=== PATIENT | male | born 1965 | race African-American/Black ===

== ENCOUNTER 2016-06-12 17:05 | Inpatient (IN) | payer OTHER, MEDICAID ==
[~2016-06-12] VITALS: Ht 185.4 cm; Wt 144.7 kg
[~2016-06-12 17:05] MED LIST: ALLO100T PO; COLC0.6T2 PO; DIGO250T4 PO; FURO-152 PO; HYDR-523 PO; IBUP-1008 PO; NAPR375T5 MT; POTA10CA42 PO
[2016-06-12] MEDS ORDERED: METHYLPREDNISOLONE SOD SUCC 125 MG/2 ML VIAL IV STA (18:16)
[2016-06-12] MEDS ORDERED: IPRATROPIUM/ALBUTEROL 0.5-3(2.5)MG/3ML NEB HHN ONE ×2 (18:30→20:45)
[2016-06-12 18:52] LABS: BASOPHILS % 0.7 % (0.0-2.0); EOSINOPHILS % 1.1 % (0.0-5.0); HEMATOCRIT. 42.4 % (42.0-52.0); HEMOGLOBIN. 13.9 g/dL (14.0-18.0); LYMPHOCYTES % 8.2 % (20.0-50.0); MEAN CORPUSCULAR HEMOGLOBIN 27.7 pg (28.0-32.0); MEAN CORPUSCULAR HGB CONC 32.8 g/dL (31.0-37.0); MEAN CORPUSCULAR VOLUME 84.4 fL (80.0-94.0); MEAN PLATELET VOLUME 6.7 fl (7.4-10.4); MONOCYTES % 6.2 % (2.0-8.0); NEUTROPHILS % 83.8 % (40.0-76.0); PLATELET 310 x1000/uL (130-400); RED BLOOD CELL COUNT 5.03 mill/uL (4.7-6.1); RED CELL DISTRIBUTION WIDTH 14.2 % (11.6-14.6); WHITE BLOOD COUNT 12.2 x1000/uL (4.5-11.0)
[2016-06-12] MEDS ORDERED: MORPHINE SULFATE 4 MG/ML CPJ (NOT FOR IM USE) IV STA (18:52)
[2016-06-12] MEDS ORDERED: ONDANSETRON HCL 4MG/2ML VIAL IV STA (18:52)
[2016-06-12 18:53] LABS: CLARITY URINE CLEAR (CLEAR); COLOR URINE YELLOW (YELLOW); GLUCOSE URINE NEGATIVE (NEGATIVE); KETONES URINE NEGATIVE (NEGATIVE); LEUKOCYTE ESTERASE URINE NEGATIVE (NEGATIVE); NITRITE URINE NEGATIVE (NEGATIVE); OCCULT BLOOD URINE NEGATIVE (NEGATIVE); PH URINE 5.5 (4.5-8.0); PROTEIN URINE NEGATIVE (NEGATIVE); SPECIFIC GRAVITY URINE 1.009 (1.005-1.030)
[2016-06-12 18:56] LABS: CHLORIDE 103 mEq/L (98-107)
[2016-06-12 18:57] LABS: INDEX HEMOLYSI 1 (1-3); INDEX ICTERIC 1 (1-4); INDEX LIPEMIC 1 (1-3)
[2016-06-12 18:59] LABS: INR 1.2; PROTHROMBIN TIME 12.4 sec
[2016-06-12 19:01] LABS: ALBUMIN 3.6 g/dL (3.4-5.0); ANION GAP 13; CALCIUM 8.7 mg/dL (8.5-10.1); CARBON DIOXIDE 28 mEq/L (21-32); LIPASE 313 IU/L (73-393); UREA NITROGEN BLOOD 15 mg/dL (7-21)
[2016-06-12] MEDS ORDERED: PREDNISONE 20MG TABLET PO STA (19:02)
[2016-06-12 19:06] LABS: ALANINE AMINOTRANSFERASE 30 IU/L (13-61); eGFR > 60 mL/min (>60)
[2016-06-12 19:08] LABS: NT PRO B-TYPE NATRIURETIC PEP 2058 pg/mL (5-125)
[2016-06-12] MEDS ORDERED: FUROSEMIDE 40MG/4ML VIAL IV ONE (19:15)
[2016-06-12 22:30] VITALS: BP 111/65
[2016-06-12] MEDS ORDERED: TEMAZEPAM 15MG CAPSULE PO PRN (23:45)
[2016-06-12] MEDS ORDERED: CLONIDINE 0.1MG TABLET PO PRN (23:45)
[2016-06-12] MEDS ORDERED: POTASSIUM CHLORIDE 20MEQ TABLET SR PO NR (23:45)
[2016-06-12] MEDS ORDERED: ALBU18HF2 IH (23:54)
[2016-06-12] MEDS ORDERED: LISINOPRIL PO (23:54)
[2016-06-13] VITALS (7 sets, daily range): BP systolic 101–117; BP diastolic 67–88
[2016-06-13] MEDS: ALLOPURINOL 100 MG TABLET PO SCH ×2 (00:16→09:58)
[2016-06-13] MEDS: HYDROCODONE/ACETAMINOPHEN 5/325MG TABLET PO PRN ×2 (00:16→12:41)
[2016-06-13] MEDS: MORPHINE SULFATE 4 MG/ML CPJ (NOT FOR IM USE) IV PRN ×2 (01:22→06:10)
[2016-06-13] MEDS: LEVOFLOXACIN 500MG TABLET PO SCH (06:09)
[2016-06-13 06:51] LABS: HEMATOCRIT. 40.3 % (42.0-52.0); HEMOGLOBIN. 13.4 g/dL (14.0-18.0); MEAN CORPUSCULAR HEMOGLOBIN 28.2 pg (28.0-32.0); MEAN CORPUSCULAR HGB CONC 33.4 g/dL (31.0-37.0); MEAN CORPUSCULAR VOLUME 84.6 fL (80.0-94.0); MEAN PLATELET VOLUME 7.1 fl (7.4-10.4); PLATELET 291 x1000/uL (130-400); RED BLOOD CELL COUNT 4.76 mill/uL (4.7-6.1); RED CELL DISTRIBUTION WIDTH 14.4 % (11.6-14.6); WHITE BLOOD COUNT 10.2 x1000/uL (4.5-11.0)
[2016-06-13 07:18] LABS: ANION GAP 15; CALCIUM 9.4 mg/dL (8.5-10.1); CARBON DIOXIDE 26 mEq/L (21-32); CHLORIDE 103 mEq/L (98-107); INDEX HEMOLYSI 1 (1-3); INDEX ICTERIC 1 (1-4); INDEX LIPEMIC 1 (1-3); UREA NITROGEN BLOOD 14 mg/dL (7-21); eGFR > 60 mL/min (>60)
[2016-06-13 07:32] LABS: DIFFERENTIAL COMMENT 1
[2016-06-13] MEDS ORDERED: NAPROXEN 375MG TABLET PO SCH (09:00)
[2016-06-13] MEDS: ENOXAPARIN 40MG/0.4ML SYR SUBCUT SCH ×2 (09:00→09:55)
[2016-06-13] MEDS ORDERED: FUROSEMIDE 20MG TABLET PO SCH (09:00)
[2016-06-13] MEDS: METHYLPREDNISOLONE SOD SUCC 40 MG/ML VIAL IV SCH ×2 (09:55→20:58)
[2016-06-13] MEDS: POTASSIUM CHLORIDE 20MEQ TABLET SR PO SCH (09:56)
[2016-06-13] MEDS: COLCHICINE 0.6MG TABLET PO SCH ×2 (09:57→17:50)
[2016-06-13] MEDS: DIGOXIN 250MCG TABLET PO SCH (09:57)
[2016-06-13] MEDS: NAPROXEN 375MG TABLET PO SCH ×2 (10:05→17:50)
[2016-06-13 12:31] LABS: MAGNESIUM 2.1 mg/dL (1.8-2.4)
[2016-06-13] MEDS: GUAIFENESIN/CODEINE 100-10MG/5ML UDC PO PRN (12:40)
[2016-06-13 13:47] LABS: PLATELET ESTIMATE NORMAL
[2016-06-13] MEDS: NEOMY SULF/BACITRAC ZN/POLY OINT 28GM TOP SCH (20:59)
[2016-06-13] MEDS ORDERED: FUROSEMIDE 40MG/4ML VIAL IVP SCH (21:45)
[2016-06-14] VITALS: BP 104/72
[2016-06-14 04:00] VITALS: BP 112/86
[2016-06-14] MEDS: LEVOFLOXACIN 500MG TABLET PO SCH (05:09)
[2016-06-14] MEDS: GUAIFENESIN/CODEINE 100-10MG/5ML UDC PO PRN (05:09)
[2016-06-14 07:18] LABS: THYROID STIMULATING HORMONE 0.63 uIU/mL (0.36-3.74)
[2016-06-14 08:00] VITALS: BP 110/82
[2016-06-14] MEDS: ENOXAPARIN 40MG/0.4ML SYR SUBCUT SCH ×2 (08:35→09:00)
[2016-06-14] MEDS: POTASSIUM CHLORIDE 20MEQ TABLET SR PO SCH (08:36)
[2016-06-14] MEDS: COLCHICINE 0.6MG TABLET PO SCH ×2 (08:36→16:49)
[2016-06-14] MEDS: ALLOPURINOL 100 MG TABLET PO SCH (08:36)
[2016-06-14] MEDS: DIGOXIN 250MCG TABLET PO SCH (08:36)
[2016-06-14] MEDS: NEOMY SULF/BACITRAC ZN/POLY OINT 28GM TOP SCH ×2 (08:40→21:01)
[2016-06-14] MEDS: FUROSEMIDE 40MG/4ML VIAL IVP SCH ×2 (08:53→16:49)
[2016-06-14] MEDS: IPRATROPIUM/ALBUTEROL 0.5-3(2.5)MG/3ML NEB HHN PRN ×3 (09:51→20:29)
[2016-06-14 12:00] VITALS: BP 105/75
[2016-06-14 16:00] VITALS: BP 98/61
[2016-06-14 20:00] VITALS: BP_SYST 106; BP_SYST 99; BP_DIAS 73; BP_DIAS 77
[2016-06-15] MEDS: GUAIFENESIN/CODEINE 100-10MG/5ML UDC PO PRN ×3 (03:46→19:23)
[2016-06-15 04:00] VITALS: BP 98/65
[2016-06-15] MEDS: LEVOFLOXACIN 500MG TABLET PO SCH (05:11)
[2016-06-15 05:47] LABS: BASOPHILS % 0.2 % (0.0-2.0); EOSINOPHILS % 0.3 % (0.0-5.0); HEMATOCRIT. 40.5 % (42.0-52.0); HEMOGLOBIN. 13.4 g/dL (14.0-18.0); LYMPHOCYTES % 15.4 % (20.0-50.0); MEAN CORPUSCULAR HEMOGLOBIN 27.8 pg (28.0-32.0); MEAN CORPUSCULAR HGB CONC 33.1 g/dL (31.0-37.0); MEAN CORPUSCULAR VOLUME 84.2 fL (80.0-94.0); MEAN PLATELET VOLUME 7.2 fl (7.4-10.4); MONOCYTES % 4.6 % (2.0-8.0); NEUTROPHILS % 79.5 % (40.0-76.0); PLATELET 339 x1000/uL (130-400); RED BLOOD CELL COUNT 4.81 mill/uL (4.7-6.1); RED CELL DISTRIBUTION WIDTH 14.3 % (11.6-14.6); WHITE BLOOD COUNT 10.8 x1000/uL (4.5-11.0)
[2016-06-15 05:59] LABS: CHLORIDE 102 mEq/L (98-107); INDEX HEMOLYSI 1 (1-3); INDEX ICTERIC 1 (1-4); INDEX LIPEMIC 1 (1-3)
[2016-06-15 06:09] LABS: ANION GAP 17; CALCIUM 8.7 mg/dL (8.5-10.1); CARBON DIOXIDE 26 mEq/L (21-32); TROPONIN I < 0.02 ng/mL (0.00-0.04); UREA NITROGEN BLOOD 22 mg/dL (7-21); eGFR > 60 mL/min (>60)
[2016-06-15 08:00] VITALS: BP 105/85
[2016-06-15] MEDS: FUROSEMIDE 40MG/4ML VIAL IVP SCH ×2 (08:22→17:12)
[2016-06-15] MEDS: DIGOXIN 250MCG TABLET PO SCH (08:23)
[2016-06-15] MEDS: NEOMY SULF/BACITRAC ZN/POLY OINT 28GM TOP SCH ×2 (08:23→19:23)
[2016-06-15] MEDS: ALLOPURINOL 100 MG TABLET PO SCH (08:23)
[2016-06-15] MEDS: POTASSIUM CHLORIDE 20MEQ TABLET SR PO SCH ×2 (08:23→17:12)
[2016-06-15] MEDS: COLCHICINE 0.6MG TABLET PO SCH ×2 (08:24→17:12)
[2016-06-15] MEDS: ENOXAPARIN 40MG/0.4ML SYR SUBCUT SCH (08:24)
[2016-06-15 12:00] VITALS: BP 101/80
[2016-06-15] MEDS: PREDNISONE 20MG TABLET PO SCH (13:09)
[2016-06-15 16:00] VITALS: BP 113/88
[2016-06-15 20:00] VITALS: BP 123/88
[2016-06-15] MEDS: HYDROCODONE/ACETAMINOPHEN 5/325MG TABLET PO PRN (20:24)
[2016-06-16] VITALS: BP 125/90
[2016-06-16] MEDS: GUAIFENESIN/CODEINE 100-10MG/5ML UDC PO PRN ×3 (00:11→11:06)
[2016-06-16 04:00] VITALS: BP 114/90
[2016-06-16] MEDS: LEVOFLOXACIN 500MG TABLET PO SCH (06:39)
[2016-06-16 07:18] LABS: CHLORIDE 103 mEq/L (98-107); INDEX HEMOLYSI 1 (1-3); INDEX ICTERIC 1 (1-4); INDEX LIPEMIC 1 (1-3)
[2016-06-16 07:26] LABS: ALANINE AMINOTRANSFERASE 104 IU/L (13-61); ALBUMIN 3.2 g/dL (3.4-5.0); ANION GAP 14; CALCIUM 9.1 mg/dL (8.5-10.1); CARBON DIOXIDE 27 mEq/L (21-32); MAGNESIUM 2.3 mg/dL (1.8-2.4); UREA NITROGEN BLOOD 24 mg/dL (7-21); eGFR > 60 mL/min (>60)
[2016-06-16 08:00] VITALS: BP 115/83
[2016-06-16 08:28] LABS: BASOPHILS % 0.2 % (0.0-2.0); EOSINOPHILS % 0.3 % (0.0-5.0); HEMOGLOBIN. 15.1 g/dL (14.0-18.0); LYMPHOCYTES % 10.2 % (20.0-50.0); MEAN CORPUSCULAR HEMOGLOBIN 28.1 pg (28.0-32.0); MEAN CORPUSCULAR HGB CONC 32.7 g/dL (31.0-37.0); MEAN PLATELET VOLUME 7.2 fl (7.4-10.4); MONOCYTES % 3.2 % (2.0-8.0); NEUTROPHILS % 86.1 % (40.0-76.0); PLATELET 375 x1000/uL (130-400); RED BLOOD CELL COUNT 5.36 mill/uL (4.7-6.1); RED CELL DISTRIBUTION WIDTH 14.7 % (11.6-14.6); WHITE BLOOD COUNT 11.6 x1000/uL (4.5-11.0)
[2016-06-16] MEDS: ENOXAPARIN 40MG/0.4ML SYR SUBCUT SCH (09:00)
[2016-06-16] MEDS: POTASSIUM CHLORIDE 20MEQ TABLET SR PO SCH (10:08)
[2016-06-16] MEDS: DIGOXIN 250MCG TABLET PO SCH (10:14)
[2016-06-16] MEDS: FUROSEMIDE 40MG/4ML VIAL IVP SCH (10:14)
[2016-06-16] MEDS: COLCHICINE 0.6MG TABLET PO SCH (10:14)
[2016-06-16] MEDS: PREDNISONE 20MG TABLET PO SCH (10:15)
[2016-06-16] MEDS: NEOMY SULF/BACITRAC ZN/POLY OINT 28GM TOP SCH (10:15)
[2016-06-16] MEDS: ALLOPURINOL 100 MG TABLET PO SCH (10:15)
[2016-06-16 12:00] VITALS: BP 120/91
[2016-06-16 16:00] VITALS: BP 103/86
[2016-06-16 17:26] VITALS: BP 103/86
== END 2016-06-16 18:23 | disposition home or self-care (01) | DRG 291 ==
LOC: ER 17:06 → OBSVTOIN 21:31 → INTOOBSV 21:31 → 5WST 21:31 → ER 22:12
PROVIDERS: ADMIT Internal Medicine; ATTEND Internal Medicine
DX: I11.0 Hypertensive heart disease with heart failure (principal); J18.9 Pneumonia, unspecified organism; Z68.41 Body mass index [BMI] 40.0-44.9, adult; J44.0 Chronic obstructive pulmonary disease with (acute) lower respiratory infection; R65.10 Systemic inflammatory response syndrome (SIRS) of non-infectious origin without acute organ dysfunction; I50.23 Acute on chronic systolic (congestive) heart failure; J20.9 Acute bronchitis, unspecified; E66.09 Other obesity due to excess calories; E87.6 Hypokalemia; G47.33 Obstructive sleep apnea (adult) (pediatric); M10.00 Idiopathic gout, unspecified site; I49.3 Ventricular premature depolarization; J44.9 Chronic obstructive pulmonary disease, unspecified; M79.671 Pain in right foot; M79.672 Pain in left foot; M25.551 Pain in right hip; M25.522 Pain in left elbow; M10.9 Gout, unspecified
CPT/HCPCS: 36415; 71010; 73080; 73502; 73630; 80048; 80053; 80061; 81003; 83690; 83735; 83880; 84132; 84443; 84484; 84550; 85025; 85610; 85651; 87070; 93005; 93306; 94640; 94664; 96374; 96375; 97116; 97162; 97530; 99285; J1650; J1940; J2270; J2405; J2920; J2930; J7512; J7620

== ENCOUNTER 2016-12-13 06:55 | Inpatient (IN) | payer OTHER, MEDICAID ==
[~2016-12-13] VITALS: Ht 185.4 cm; Wt 137.1 kg
[2016-12-13] VITALS (11 sets, daily range): BP systolic 105–129; BP diastolic 73–97
[~2016-12-13 06:55] MED LIST changes: +ASPI-1159 PO; +COR12 PO; -DIGO250T4 PO; -FURO-152 PO; +FURO80TA3 PO; -HYDR-523 PO; -IBUP-1008 PO; +LISI-651 PO; -NAPR375T5 MT; -POTA10CA42 PO
[2016-12-13] MEDS ORDERED: KETOROLAC 30MG/ML VIAL IV STA (07:57)
[2016-12-13] MEDS ORDERED: METHYLPREDNISOLONE SOD SUCC 125 MG/2 ML VIAL IV ONE (08:00)
[2016-12-13] MEDS ORDERED: IPRATROPIUM/ALBUTEROL 0.5-3(2.5)MG/3ML NEB HHN ONE (08:00)
[2016-12-13 08:41] LABS: BASOPHILS % 0.9 % (0.0-2.0); EOSINOPHILS % 0.3 % (0.0-5.0); HEMOGLOBIN. 13.7 g/dL (14.0-18.0); MEAN CORPUSCULAR HEMOGLOBIN 28.5 pg (28.0-32.0); MEAN CORPUSCULAR VOLUME 85.2 fL (80.0-94.0); MEAN PLATELET VOLUME 7.1 fl (7.4-10.4); MONOCYTES % 5.7 % (2.0-8.0); NEUTROPHILS % 84.1 % (40.0-76.0); PLATELET 307 x1000/uL (130-400); RED BLOOD CELL COUNT 4.81 mill/uL (4.7-6.1); RED CELL DISTRIBUTION WIDTH 14.6 % (11.6-14.6)
[2016-12-13 08:49] LABS: INR 1.3; PARTIAL THROMBOPLASTIN TIME 28.2 sec (23.4-31.0)
[2016-12-13 08:56] LABS: CARBON DIOXIDE 25 mEq/L (21-32); CHLORIDE 103 mEq/L (98-107); TROPONIN I 0.03 ng/mL (0.00-0.04)
[2016-12-13 09:23] LABS: GLUCOSE URINE NEGATIVE (NEGATIVE); KETONES URINE NEGATIVE (NEGATIVE); LEUKOCYTE ESTERASE URINE NEGATIVE (NEGATIVE); NITRITE URINE NEGATIVE (NEGATIVE); OCCULT BLOOD URINE NEGATIVE (NEGATIVE); PROTEIN URINE NEGATIVE (NEGATIVE); SPECIFIC GRAVITY URINE 1.007 (1.005-1.030)
[2016-12-13 09:31] LABS: CLARITY URINE CLEAR (CLEAR); COLOR URINE PALE YELLOW (YELLOW)
[2016-12-13 09:59] LABS: *AMPHETAMINES SCREEN URINE NEGATIVE (NEGATIVE); *BARBITURATES SCREEN URINE NEGATIVE (NEGATIVE); *BENZODIAZEPINES SCREEN URINE NEGATIVE (NEGATIVE); *COCAINE SCREEN URINE NEGATIVE (NEGATIVE); CANNABINOID URINE SCREEN NEGATIVE (NEGATIVE); METHADONE URINE SCREEN NEGATIVE (NEGATIVE); OPIATES URINE SCREEN NEGATIVE (NEGATIVE); PHENCYCLIDINE URINE SCREEN NEGATIVE (NEGATIVE)
[2016-12-13] MEDS ORDERED: POTA10TA15 PO (13:34)
[2016-12-13] MEDS ORDERED: POTASSIUM CHLORIDE 20MEQ TABLET SR PO SCH (14:30)
[2016-12-13] MEDS ORDERED: KETOROLAC 30MG/ML VIAL IV PRN (16:15)
[2016-12-13] MEDS ORDERED: DOXYCYCLINE HYCLATE 100MG CAPSULE PO SCH (17:00)
[2016-12-13] MEDS: COLCHICINE 0.6MG TABLET PO SCH (17:00)
[2016-12-13] MEDS: FUROSEMIDE 80MG TABLET PO SCH (17:30)
[2016-12-13] MEDS: ALLOPURINOL 100 MG TABLET PO SCH (17:31)
[2016-12-13] MEDS: COLCHICINE 0.6MG TABLET PO NR ×2 (17:33→17:40)
[2016-12-13] MEDS: IPRATROPIUM/ALBUTEROL 0.5-3(2.5)MG/3ML NEB HHN SCH (20:17)
[2016-12-13] MEDS: CARVEDILOL 12.5MG TABLET PO SCH (20:40)
[2016-12-13] MEDS: METHYLPREDNISOLONE SOD SUCC 125 MG/2 ML VIAL IV SCH (22:16)
[2016-12-13 23:08] LABS: CREATINE KINASE 56 IU/L (39-308); CREATINE KINASE MB FRACTION 1.1 ng/mL (0.5-3.6); TROPONIN I < 0.02 ng/mL (0.00-0.04)
[2016-12-14] VITALS (9 sets, daily range): BP systolic 103–132; BP diastolic 58–78
[2016-12-14] MEDS: IPRATROPIUM/ALBUTEROL 0.5-3(2.5)MG/3ML NEB HHN SCH ×2 (00:18→04:32)
[2016-12-14] MEDS: METHYLPREDNISOLONE SOD SUCC 125 MG/2 ML VIAL IV SCH (05:56)
[2016-12-14 07:36] LABS: CARBON DIOXIDE 26 mEq/L (21-32); CHLORIDE 104 mEq/L (98-107); CREATINE KINASE 53 IU/L (39-308); CREATINE KINASE MB FRACTION 1.5 ng/mL (0.5-3.6); TROPONIN I < 0.02 ng/mL (0.00-0.04)
[2016-12-14 07:45] LABS: HEMATOCRIT. 40.1 % (42.0-52.0); HEMOGLOBIN. 13.2 g/dL (14.0-18.0); MEAN CORPUSCULAR HEMOGLOBIN 28.4 pg (28.0-32.0); MEAN CORPUSCULAR VOLUME 86.3 fL (80.0-94.0); MEAN PLATELET VOLUME 7.5 fl (7.4-10.4); PLATELET 299 x1000/uL (130-400); RED BLOOD CELL COUNT 4.65 mill/uL (4.7-6.1); RED CELL DISTRIBUTION WIDTH 14.5 % (11.6-14.6)
[2016-12-14] MEDS: ALLOPURINOL 100 MG TABLET PO SCH (08:17)
[2016-12-14] MEDS: FUROSEMIDE 80MG TABLET PO SCH (08:17)
[2016-12-14] MEDS: COLCHICINE 0.6MG TABLET PO SCH (08:18)
[2016-12-14] MEDS: CARVEDILOL 12.5MG TABLET PO SCH (08:19)
[2016-12-14] MEDS ORDERED: ASPIRIN 81MG EC TABLET PO SCH (09:00)
[2016-12-14] MEDS ORDERED: LISINOPRIL 10MG TABLET PO SCH (09:00)
[2016-12-14] MEDS ORDERED: POTASSIUM CHLORIDE 20MEQ TABLET SR PO SCH (09:00)
[2016-12-14 16:15] LABS: PLATELET ESTIMATE NORMAL
== END 2016-12-14 13:00 | disposition home or self-care (01) | DRG 602 ==
LOC: ER 06:55 → 3WST 11:12 → EDBEDREQ 11:18 → ENRESERV 11:35
PROVIDERS: ADMIT Internal Medicine; ATTEND Internal Medicine
DX: L03.114 Cellulitis of left upper limb (principal); I50.23 Acute on chronic systolic (congestive) heart failure; J44.1 Chronic obstructive pulmonary disease with (acute) exacerbation; I42.0 Dilated cardiomyopathy; J45.901 Unspecified asthma with (acute) exacerbation; I11.0 Hypertensive heart disease with heart failure; E66.9 Obesity, unspecified; F14.10 Cocaine abuse, uncomplicated; E87.6 Hypokalemia; G47.33 Obstructive sleep apnea (adult) (pediatric); I49.3 Ventricular premature depolarization; M10.072 Idiopathic gout, left ankle and foot; Z79.82 Long term (current) use of aspirin; Z91.19 Patient's noncompliance with other medical treatment and regimen; Z68.39 Body mass index [BMI] 39.0-39.9, adult; Z79.899 Other long term (current) drug therapy
CPT/HCPCS: 36415; 71010; 80048; 80053; 80305; 81003; 82550; 82553; 83735; 83880; 84443; 84484; 84550; 85025; 85610; 85730; 93005; 94640; 96374; 96375; 99285; J1885; J2930; J7620

== ENCOUNTER 2017-01-18 19:42 | Inpatient (IN) | payer OTHER, MEDICAID ==
[~2017-01-18] VITALS: Ht 185.4 cm; Wt 129.3 kg
[~2017-01-18 19:42] MED LIST changes: +POTA10TA15 PO
[2017-01-18] MEDS ORDERED: ONDANSETRON HCL 4MG/2ML VIAL IV STA (20:17)
[2017-01-18] MEDS ORDERED: SODIUM CHLORIDE 0.9% 1,000 ML IV ONE (20:17)
[2017-01-18] MEDS ORDERED: KETOROLAC 30MG/ML VIAL IV STA (20:17)
[2017-01-18] MEDS ORDERED: MAGNESIUM CITRATE 300ML SOLUTION PO ONE ×2 (20:30→22:30)
[2017-01-18 20:43] LABS: BASOPHILS % 0.4 % (0.0-2.0); EOSINOPHILS % 0.3 % (0.0-5.0); HEMATOCRIT. 43.2 % (42.0-52.0); HEMOGLOBIN. 14.4 g/dL (14.0-18.0); LYMPHOCYTES % 13.5 % (20.0-50.0); MEAN CORPUSCULAR HEMOGLOBIN 28.7 pg (28.0-32.0); MEAN CORPUSCULAR VOLUME 85.9 fL (80.0-94.0); MEAN PLATELET VOLUME 7.2 fl (7.4-10.4); MONOCYTES % 8.5 % (2.0-8.0); NEUTROPHILS % 77.3 % (40.0-76.0); PLATELET 287 x1000/uL (130-400); RED BLOOD CELL COUNT 5.04 mill/uL (4.7-6.1); RED CELL DISTRIBUTION WIDTH 15.4 % (11.6-14.6)
[2017-01-18 20:44] LABS: CHLORIDE 99 mEq/L (98-107)
[2017-01-18 20:47] LABS: INR 1.3; PROTHROMBIN TIME 13.9 sec (9.4-11.6)
[2017-01-18 20:55] LABS: CARBON DIOXIDE 28 mEq/L (21-32)
[2017-01-18 21:10] LABS: CLARITY URINE CLEAR (CLEAR); COLOR URINE DARK YELLOW (YELLOW); GLUCOSE URINE NEGATIVE (NEGATIVE); KETONES URINE NEGATIVE (NEGATIVE); LEUKOCYTE ESTERASE URINE NEGATIVE (NEGATIVE); NITRITE URINE NEGATIVE (NEGATIVE); OCCULT BLOOD URINE NEGATIVE (NEGATIVE); PH URINE 5.5 (4.5-8.0); PROTEIN URINE 2+ (NEGATIVE); SPECIFIC GRAVITY URINE 1.018 (1.005-1.030)
[2017-01-18] MEDS ORDERED: POTASSIUM CHLORIDE 20MEQ TABLET SR PO ONE (22:45)
[2017-01-18] MEDS ORDERED: FUROSEMIDE 40MG/4ML VIAL IVP ONE (23:45)
[2017-01-18] MEDS ORDERED: ONDANSETRON HCL 4MG/2ML VIAL IV ONE (23:45)
[2017-01-19] MEDS ORDERED: ASPIRIN 81MG TABLET PO ONE (00:30)
[2017-01-19 04:10] VITALS: BP 115/87
[2017-01-19] MEDS ORDERED: MAGNESIUM/ALUMINUM HYDROXIDE/SIMETHICONE 30ML UDC PO PRN (04:30)
[2017-01-19] MEDS ORDERED: ONDANSETRON HCL 4MG/2ML VIAL IV PRN (04:30)
[2017-01-19] MEDS ORDERED: ACETAMINOPHEN 325MG TABLET PO PRN (04:30)
[2017-01-19] MEDS ORDERED: CLONIDINE 0.1MG TABLET PO PRN (04:30)
[2017-01-19] MEDS ORDERED: IPRATROPIUM/ALBUTEROL 0.5-3(2.5)MG/3ML NEB INH PRN (04:30)
[2017-01-19] MEDS ORDERED: DIPHENHYDRAMINE 50MG/ML VIAL IV PRN (04:30)
[2017-01-19] MEDS: SODIUM CHLORIDE 0.9% INJ 3ML FLUSH IVF SCH ×3 (04:50→21:16)
[2017-01-19] MEDS ORDERED: MAGNESIUM 2 G PREMIX 50 ML IV SCH (06:00)
[2017-01-19 08:00] VITALS: BP 113/82
[2017-01-19] MEDS: ALLOPURINOL 100 MG TABLET PO SCH (08:48)
[2017-01-19] MEDS: LISINOPRIL 10MG TABLET PO SCH ×2 (08:48→08:55)
[2017-01-19] MEDS: POTASSIUM CHLORIDE 20MEQ TABLET SR PO SCH ×2 (08:49→18:52)
[2017-01-19] MEDS: CARVEDILOL 12.5MG TABLET PO SCH ×2 (08:50→21:16)
[2017-01-19 10:59] LABS: CARBON DIOXIDE 24 mEq/L (21-32); CHLORIDE 103 mEq/L (98-107)
[2017-01-19 12:00] VITALS: BP 101/63
[2017-01-19] MEDS: MORPHINE SULFATE 4 MG/ML CPJ (NOT FOR IM USE) IV PRN ×2 (12:39→21:21)
[2017-01-19 16:00] VITALS: BP 100/74
[2017-01-19] MEDS: FUROSEMIDE 40MG TABLET PO SCH (18:52)
[2017-01-19] MEDS: COLCHICINE 0.6MG TABLET PO SCH (18:52)
[2017-01-19 20:00] VITALS: BP 128/93
[2017-01-19 23:22] LABS: CARBON DIOXIDE 28 mEq/L (21-32); CHLORIDE 101 mEq/L (98-107)
[2017-01-20] VITALS: BP 90/63
[2017-01-20 04:00] VITALS: BP 103/77
[2017-01-20 06:14] LABS: BASOPHILS % 0.3 % (0.0-2.0); EOSINOPHILS % 0.7 % (0.0-5.0); HEMATOCRIT. 42.2 % (42.0-52.0); HEMOGLOBIN. 14.1 g/dL (14.0-18.0); LYMPHOCYTES % 15.6 % (20.0-50.0); MEAN CORPUSCULAR HEMOGLOBIN 28.9 pg (28.0-32.0); MEAN CORPUSCULAR VOLUME 86.4 fL (80.0-94.0); MEAN PLATELET VOLUME 7.7 fl (7.4-10.4); MONOCYTES % 6.4 % (2.0-8.0); PLATELET 269 x1000/uL (130-400); RED BLOOD CELL COUNT 4.88 mill/uL (4.7-6.1)
[2017-01-20] MEDS: SODIUM CHLORIDE 0.9% INJ 3ML FLUSH IVF SCH ×2 (06:43→14:15)
[2017-01-20 06:45] LABS: CARBON DIOXIDE 26 mEq/L (21-32); CHLORIDE 102 mEq/L (98-107)
[2017-01-20 08:00] VITALS: BP 103/77
[2017-01-20] MEDS: LISINOPRIL 10MG TABLET PO SCH (10:39)
[2017-01-20] MEDS: FUROSEMIDE 40MG TABLET PO SCH (10:39)
[2017-01-20] MEDS: COLCHICINE 0.6MG TABLET PO SCH (10:39)
[2017-01-20] MEDS: ALLOPURINOL 100 MG TABLET PO SCH (10:39)
[2017-01-20] MEDS: POTASSIUM CHLORIDE 20MEQ TABLET SR PO SCH (10:40)
[2017-01-20] MEDS: CARVEDILOL 12.5MG TABLET PO SCH (10:40)
[2017-01-20] MEDS ORDERED: POTASSIUM CHLORIDE 20MEQ TABLET SR PO NR (11:15)
[2017-01-20 12:28] VITALS: BP 102/76
[2017-01-20 13:26] LABS: HEPATITIS B CORE AB IGM NEGATIVE
[2017-01-20 13:28] LABS: HEPATITIS A AB IGM NEGATIVE (NEGATIVE)
[2017-01-20 13:48] LABS: HEPATITIS B SURFACE ANTIGEN NEGATIVE
[2017-01-20 15:19] VITALS: BP 102/68
== END 2017-01-20 16:00 | disposition home or self-care (01) | DRG 388 ==
LOC: ER 20:02 → 7WST 01-19 03:04 → ENRESERV 01-19 03:06 → EDBEDREQ 01-19 03:06
PROVIDERS: ADMIT Internal Medicine; ATTEND Internal Medicine
DX: K56.41 Fecal impaction (principal); I50.23 Acute on chronic systolic (congestive) heart failure; I42.0 Dilated cardiomyopathy; I11.0 Hypertensive heart disease with heart failure; E87.6 Hypokalemia; I49.3 Ventricular premature depolarization; J44.9 Chronic obstructive pulmonary disease, unspecified; E78.5 Hyperlipidemia, unspecified; E80.6 Other disorders of bilirubin metabolism; R74.0 Nonspecific elevation of levels of transaminase and lactic acid dehydrogenase [LDH]; M71.9 Bursopathy, unspecified; R79.89 Other specified abnormal findings of blood chemistry; M10.9 Gout, unspecified; Z79.82 Long term (current) use of aspirin; Z79.899 Other long term (current) drug therapy
CPT/HCPCS: 36415; 71010; 73200; 74176; 76700; 80048; 80053; 80076; 81001; 82248; 83735; 83880; 84484; 85025; 85379; 85610; 86705; 86709; 86803; 87340; 93005; 96361; 96374; 96375; 99285; J1885; J1940; J2270; J2405; J3475; J7030

== ENCOUNTER 2017-07-09 00:06 | Inpatient (IN) | payer OTHER, MEDICAID ==
[~2017-07-09] VITALS: Ht 185.4 cm; Wt 119.4 kg
[~2017-07-09 00:06] MED LIST changes: -ASPI-1159 PO; +AZIT500T5 PO; -COR12 PO; +COR3 PO; -LISI-651 PO; +LISI2.5T47 PO
[2017-07-09] MEDS ORDERED: MORPHINE SULFATE 4 MG/ML CPJ (NOT FOR IM USE) IV STA (00:39)
[2017-07-09] MEDS ORDERED: ONDANSETRON HCL 4MG/2ML VIAL IV STA (00:39)
[2017-07-09] MEDS ORDERED: SODIUM CHLORIDE 0.9% 1,000 ML IV ONE (00:39)
[2017-07-09] MEDS ORDERED: ASPIRIN 81MG TABLET PO ONE (00:45)
[2017-07-09 01:06] LABS: HEMATOCRIT. 41.3 % (42.0-52.0); HEMOGLOBIN. 14.1 g/dL (14.0-18.0); MEAN CORPUSCULAR HEMOGLOBIN 29.4 pg (28.0-32.0); MEAN CORPUSCULAR VOLUME 85.8 fL (80.0-94.0); MEAN PLATELET VOLUME 6.6 fl (7.4-10.4); PLATELET 303 x1000/uL (130-400); RED BLOOD CELL COUNT 4.81 mill/uL (4.7-6.1); RED CELL DISTRIBUTION WIDTH 16.9 % (11.6-14.6)
[2017-07-09 01:14] LABS: CHLORIDE 97 mEq/L (98-107)
[2017-07-09 01:17] LABS: INR 1.2; PROTHROMBIN TIME 12.7 sec (9.4-11.6)
[2017-07-09 01:19] LABS: ETHANOL BLOOD < 10 mg/dL
[2017-07-09] MEDS ORDERED: SODIUM CHLORIDE 0.9% 1000ML BAG (SEPSIS BOLUS) IV ONE (01:45)
[2017-07-09] MEDS ORDERED: LEVOFLOXACIN 750MG PREMIX 150 ML IV ONE (01:45)
[2017-07-09 02:24] LABS: PLATELET ESTIMATE NORMAL
[2017-07-09] MEDS ORDERED: MORPHINE SULFATE 2 MG/ML CPJ (NOT FOR IM USE) IV STA (03:09)
[2017-07-09] MEDS ORDERED: MORPHINE SULFATE 4 MG/ML CPJ (NOT FOR IM USE) IV ONE (03:23)
[2017-07-09] MEDS ORDERED: POTA20TA82 PO (06:25)
[2017-07-09] MEDS ORDERED: MORPHINE SULFATE 4 MG/ML CPJ (NOT FOR IM USE) IV NR (07:30)
[2017-07-09] MEDS ORDERED: KCL 20MEQ/100ML PREMIX 100 ML IV STA (07:34)
[2017-07-09] MEDS ORDERED: MORPHINE SULFATE 2 MG/ML CPJ (NOT FOR IM USE) IV PRN (07:45)
[2017-07-09] MEDS ORDERED: ONDANSETRON HCL 4MG/2ML VIAL IV PRN (07:45)
[2017-07-09] MEDS ORDERED: VANCOMYCIN 1 G PREMIX 200 ML IV SCH (07:45)
[2017-07-09] MEDS ORDERED: PIPERACILLIN/TAZ 3.375G PREMIX 50 ML IV SCH ×2 (07:45→13:00)
[2017-07-09 08:00] VITALS: BP 108/72
[2017-07-09] MEDS: PANTOPRAZOLE SODIUM 40 MG/VIAL IV SCH (09:41)
[2017-07-09] MEDS: DEXT 5%/0.45% NACL 1000ML 1,000 ML IV SCH (09:42)
[2017-07-09] MEDS: ENOXAPARIN 30MG/0.3ML SYR SUBCUT SCH ×2 (09:52→20:42)
[2017-07-09 10:45] VITALS: BP 109/76
[2017-07-09] MEDS ORDERED: MORPHINE SULFATE 4 MG/ML CPJ (NOT FOR IM USE) IV PRN (10:50)
[2017-07-09] MEDS ORDERED: POTASSIUM CHLORIDE INJ 40 MEQ in DEXT 5% WATER 500 ML IV NR (11:00)
[2017-07-09 11:05] VITALS: BP 109/76
[2017-07-09] MEDS ORDERED: HYDROMORPHONE HCL/PF 2MG/ML CPJ IV PRN (11:30)
[2017-07-09] MEDS ORDERED: SIMV10TA6 PO (11:55)
[2017-07-09] MEDS ORDERED: SPIR25TA4 PO (11:55)
[2017-07-09] MEDS ORDERED: SULF1TAB48 PO (12:00)
[2017-07-09] MEDS ORDERED: METF500T4 PO (12:00)
[2017-07-09] MEDS ORDERED: SACU1TAB7 PO (12:00)
[2017-07-09] MEDS ORDERED: VANCOMYCIN 2,000 MG in DEXT 5% WATER 500 ML IV NR (12:00)
[2017-07-09] MEDS ORDERED: AMOX125S8 PO (12:00)
[2017-07-09] MEDS ORDERED: COR12 PO (12:05)
[2017-07-09] MEDS ORDERED: ALLO100T PO (12:05)
[2017-07-09] MEDS ORDERED: ASPI-1159 PO (12:25)
[2017-07-09 12:28] VITALS: BP 120/80
[2017-07-09] MEDS ORDERED: COLC0.6C3 PO (13:23)
[2017-07-09] MEDS: COLCHICINE 0.6MG TABLET PO SCH (13:52)
[2017-07-09] MEDS: IBUPROFEN 400MG TABLET PO PRN (13:52)
[2017-07-09] MEDS ORDERED: METRONIDAZOLE 500 MG PREMIX 100 ML IV SCH (14:00)
[2017-07-09] MEDS: HYDROMORPHONE HCL/PF 2MG/ML CPJ IV PRN ×2 (14:59→20:46)
[2017-07-09 15:35] LABS: CLARITY URINE CLEAR (CLEAR); COLOR URINE DARK YELLOW (YELLOW); KETONES URINE NEGATIVE (NEGATIVE); LEUKOCYTE ESTERASE URINE TRACE (NEGATIVE); NITRITE URINE POSITIVE (NEGATIVE); OCCULT BLOOD URINE NEGATIVE (NEGATIVE); PH URINE 5.5 (4.5-8.0); PROTEIN URINE 2+ (NEGATIVE); SPECIFIC GRAVITY URINE 1.031 (1.005-1.030)
[2017-07-09 15:57] LABS: *COCAINE SCREEN URINE PRESUMTIVE POSITIVE (NEGATIVE)
[2017-07-09 15:58] LABS: *AMPHETAMINES SCREEN URINE NEGATIVE (NEGATIVE); CANNABINOID URINE SCREEN NEGATIVE (NEGATIVE); METHADONE URINE SCREEN NEGATIVE (NEGATIVE); OPIATES URINE SCREEN PRESUMTIVE POSITIVE (NEGATIVE); PHENCYCLIDINE URINE SCREEN NEGATIVE (NEGATIVE)
[2017-07-09 15:59] LABS: *BARBITURATES SCREEN URINE NEGATIVE (NEGATIVE); *BENZODIAZEPINES SCREEN URINE NEGATIVE (NEGATIVE)
[2017-07-09 16:00] VITALS: BP 104/65
[2017-07-09] MEDS: FUROSEMIDE 40MG/4ML VIAL IV SCH (17:35)
[2017-07-09 17:51] LABS: HEMATOCRIT. 36.7 % (42.0-52.0); HEMOGLOBIN. 12.6 g/dL (14.0-18.0); MEAN CORPUSCULAR HEMOGLOBIN 29.6 pg (28.0-32.0); MEAN CORPUSCULAR VOLUME 86.1 fL (80.0-94.0); MEAN PLATELET VOLUME 7.4 fl (7.4-10.4); PLATELET 298 x1000/uL (130-400); RED BLOOD CELL COUNT 4.26 mill/uL (4.7-6.1)
[2017-07-09 18:07] LABS: CREATINE KINASE MB FRACTION 0.6 ng/mL (0.5-3.6)
[2017-07-09 20:00] VITALS: BP 99/72
[2017-07-09] MEDS: PIPERACILLIN/TAZ 3.375G PREMIX 50 ML IV SCH (20:40)
[2017-07-09 21:03] LABS: CHLORIDE 97 mEq/L (98-107)
[2017-07-09 21:44] LABS: PLATELET ESTIMATE NORMAL
[2017-07-09] MEDS ORDERED: VANCOMYCIN 1500MG in DEXTROSE 5% WATER 250ML IV SCH (23:00)
[2017-07-09] MEDS: VANCOMYCIN 1250MG in DEXTROSE 5% WATER 250ML IV SCH (23:02)
[2017-07-10 00:21] VITALS: BP 105/70
[2017-07-10] MEDS: METRONIDAZOLE 500 MG PREMIX 100 ML IV SCH ×2 (01:10→07:52)
[2017-07-10] MEDS: PIPERACILLIN/TAZ 3.375G PREMIX 50 ML IV SCH ×4 (02:29→20:44)
[2017-07-10 04:00] VITALS: BP 108/77
[2017-07-10] MEDS: IBUPROFEN 400MG TABLET PO PRN (05:42)
[2017-07-10] MEDS: VANCOMYCIN 1250MG in DEXTROSE 5% WATER 250ML IV SCH ×3 (05:42→21:58)
[2017-07-10] MEDS: FUROSEMIDE 40MG/4ML VIAL IV SCH (06:31)
[2017-07-10 07:30] LABS: HEMATOCRIT. 35.2 % (42.0-52.0); HEMOGLOBIN. 11.8 g/dL (14.0-18.0); MEAN CORPUSCULAR VOLUME 86.4 fL (80.0-94.0); MEAN PLATELET VOLUME 7.2 fl (7.4-10.4); PLATELET 273 x1000/uL (130-400); RED BLOOD CELL COUNT 4.07 mill/uL (4.7-6.1); RED CELL DISTRIBUTION WIDTH 16.9 % (11.6-14.6)
[2017-07-10 07:55] LABS: CHLORIDE 94 mEq/L (98-107)
[2017-07-10 08:00] VITALS: BP 99/63
[2017-07-10] MEDS: PANTOPRAZOLE SODIUM 40 MG/VIAL IV SCH (09:19)
[2017-07-10] MEDS: ENOXAPARIN 30MG/0.3ML SYR SUBCUT SCH ×2 (09:20→20:44)
[2017-07-10] MEDS: COLCHICINE 0.6MG TABLET PO SCH (09:20)
[2017-07-10] MEDS: DEXT 5%/0.45% NACL 1000ML 1,000 ML IV SCH (09:30)
[2017-07-10] MEDS: IBUPROFEN 800MG TABLET PO PRN (11:11)
[2017-07-10 12:00] VITALS: BP 116/71
[2017-07-10 16:00] VITALS: BP 100/65
[2017-07-10] MEDS: FUROSEMIDE 40MG/4ML VIAL IVP SCH (16:15)
[2017-07-10] MEDS: POTASSIUM CHLORIDE 10MEQ TABLET SR PO SCH ×2 (16:15→17:00)
[2017-07-10] MEDS: MORPHINE SULFATE 4 MG/ML CPJ (NOT FOR IM USE) IV PRN ×2 (17:39→21:58)
[2017-07-10] MEDS ORDERED: IOHEXOL-300 100 ML BOTTLE ONE (19:26)
[2017-07-10 20:00] VITALS: BP 100/64
[2017-07-10 21:57] LABS: PLATELET ESTIMATE NORMAL
[2017-07-11] VITALS: BP 100/70
[2017-07-11] MEDS: MORPHINE SULFATE 4 MG/ML CPJ (NOT FOR IM USE) IV PRN ×6 (02:12→23:29)
[2017-07-11] MEDS: PIPERACILLIN/TAZ 3.375G PREMIX 50 ML IV SCH ×4 (02:12→20:19)
[2017-07-11 04:00] VITALS: BP 100/71
[2017-07-11] MEDS: VANCOMYCIN 1250MG in DEXTROSE 5% WATER 250ML IV SCH ×3 (06:20→21:24)
[2017-07-11 07:01] LABS: HEMATOCRIT. 32.2 % (42.0-52.0); HEMOGLOBIN. 10.8 g/dL (14.0-18.0); MEAN CORPUSCULAR HEMOGLOBIN 28.8 pg (28.0-32.0); MEAN CORPUSCULAR VOLUME 85.7 fL (80.0-94.0); MEAN PLATELET VOLUME 7.2 fl (7.4-10.4); PLATELET 268 x1000/uL (130-400); RED BLOOD CELL COUNT 3.75 mill/uL (4.7-6.1); RED CELL DISTRIBUTION WIDTH 16.6 % (11.6-14.6)
[2017-07-11 08:00] VITALS: BP 100/72
[2017-07-11 08:17] LABS: CHLORIDE 94 mEq/L (98-107)
[2017-07-11] MEDS: COLCHICINE 0.6MG TABLET PO SCH (08:45)
[2017-07-11] MEDS: FAMOTIDINE 20MG TABLET PO SCH ×2 (08:45→20:19)
[2017-07-11] MEDS: POTASSIUM CHLORIDE 10MEQ TABLET SR PO SCH ×2 (08:45→16:49)
[2017-07-11] MEDS: ENOXAPARIN 30MG/0.3ML SYR SUBCUT SCH ×2 (08:46→20:20)
[2017-07-11] MEDS: FUROSEMIDE 40MG/4ML VIAL IVP SCH (09:43)
[2017-07-11] MEDS: DEXT 5%/0.45% NACL 1000ML 1,000 ML IV SCH (09:44)
[2017-07-11] MEDS ORDERED: POTASSIUM CHLORIDE 20MEQ TABLET SR PO NR (10:50)
[2017-07-11 12:00] VITALS: BP 110/76
[2017-07-11 14:27] LABS: PLATELET ESTIMATE NORMAL
[2017-07-11 16:00] VITALS: BP 111/79
[2017-07-11 20:00] VITALS: BP 105/74
[2017-07-12] VITALS: BP 103/76
[2017-07-12] MEDS: PIPERACILLIN/TAZ 3.375G PREMIX 50 ML IV SCH ×4 (02:18→20:31)
[2017-07-12] MEDS: MORPHINE SULFATE 4 MG/ML CPJ (NOT FOR IM USE) IV PRN ×3 (03:59→13:48)
[2017-07-12 04:00] VITALS: BP_SYST 112; BP_DIAS 73; BP_DIAS 83
[2017-07-12] MEDS: VANCOMYCIN 1250MG in DEXTROSE 5% WATER 250ML IV SCH ×3 (05:25→21:59)
[2017-07-12 07:26] LABS: CHLORIDE 94 mEq/L (98-107)
[2017-07-12 07:44] LABS: BASOPHILS % 0.2 % (0.0-2.0); EOSINOPHILS % 0.1 % (0.0-5.0); HEMATOCRIT. 31.9 % (42.0-52.0); LYMPHOCYTES % 8.9 % (20.0-50.0); MEAN CORPUSCULAR HEMOGLOBIN 29.8 pg (28.0-32.0); MEAN CORPUSCULAR VOLUME 86.5 fL (80.0-94.0); MEAN PLATELET VOLUME 7.3 fl (7.4-10.4); MONOCYTES % 10.1 % (2.0-8.0); NEUTROPHILS % 80.7 % (40.0-76.0); PLATELET 281 x1000/uL (130-400); RED BLOOD CELL COUNT 3.68 mill/uL (4.7-6.1); RED CELL DISTRIBUTION WIDTH 16.5 % (11.6-14.6)
[2017-07-12 08:00] VITALS: BP 102/74
[2017-07-12] MEDS: FAMOTIDINE 20MG TABLET PO SCH ×2 (08:05→20:30)
[2017-07-12] MEDS: POTASSIUM CHLORIDE 10MEQ TABLET SR PO SCH ×2 (08:05→16:15)
[2017-07-12] MEDS: COLCHICINE 0.6MG TABLET PO SCH (08:05)
[2017-07-12] MEDS: FUROSEMIDE 40MG/4ML VIAL IVP SCH (08:06)
[2017-07-12] MEDS: ENOXAPARIN 30MG/0.3ML SYR SUBCUT SCH ×2 (08:22→20:30)
[2017-07-12] MEDS: DEXT 5%/0.45% NACL 1000ML 1,000 ML IV SCH ×2 (09:26→20:44)
[2017-07-12 12:00] VITALS: BP 116/68
[2017-07-12] MEDS ORDERED: LIDOCAINE HCL/PF 1% 10 MG/ML 5ML VIAL ONE (12:11)
[2017-07-12] MEDS ORDERED: SODIUM BICARBONATE 4% (2.4MEQ) 5ML VIAL IV ONE (12:11)
[2017-07-12] MEDS ORDERED: KCL 20MEQ/100ML PREMIX 100 ML IV SCH (13:00)
[2017-07-12] MEDS: ALLOPURINOL 100 MG TABLET PO SCH (13:49)
[2017-07-12] MEDS: ASPIRIN 81MG EC TABLET PO SCH (13:58)
[2017-07-12] MEDS: CARVEDILOL 12.5MG TABLET PO SCH ×2 (13:58→20:28)
[2017-07-12] MEDS: HYDROMORPHONE HCL/PF 2MG/ML CPJ IV PRN ×2 (15:33→20:44)
[2017-07-12 16:00] VITALS: BP 100/73
[2017-07-12 20:00] VITALS: BP 97/51
[2017-07-13] VITALS (7 sets, daily range): BP systolic 87–104; BP diastolic 49–70
[2017-07-13] MEDS: PIPERACILLIN/TAZ 3.375G PREMIX 50 ML IV SCH ×4 (02:11→21:22)
[2017-07-13] MEDS: HYDROMORPHONE HCL/PF 2MG/ML CPJ IV PRN ×3 (03:36→21:23)
[2017-07-13] MEDS: VANCOMYCIN 1250MG in DEXTROSE 5% WATER 250ML IV SCH (05:15)
[2017-07-13 05:59] LABS: HEMATOCRIT 32.2 % (42.0-52.0); MEAN CORPUSCULAR HEMOGLOBIN 29.6 pg (28.0-32.0); PLATELET 268 x1000/uL (130-400); RED CELL DISTRIBUTION WIDTH 16.2 % (11.6-14.6)
[2017-07-13 07:26] LABS: CHLORIDE 92 mEq/L (98-107)
[2017-07-13 07:47] LABS: VANCOMYCIN TROUGH 27.4 ug/mL (5.0-10.0)
[2017-07-13] MEDS: ENOXAPARIN 30MG/0.3ML SYR SUBCUT SCH ×2 (08:14→21:22)
[2017-07-13] MEDS: COLCHICINE 0.6MG TABLET PO SCH (08:15)
[2017-07-13] MEDS: POTASSIUM CHLORIDE 10MEQ TABLET SR PO SCH ×2 (08:15→16:09)
[2017-07-13] MEDS: ALLOPURINOL 100 MG TABLET PO SCH (08:15)
[2017-07-13] MEDS: FAMOTIDINE 20MG TABLET PO SCH ×2 (08:15→21:21)
[2017-07-13] MEDS: ASPIRIN 81MG EC TABLET PO SCH (08:15)
[2017-07-13] MEDS: FUROSEMIDE 40MG/4ML VIAL IVP SCH (08:16)
[2017-07-13] MEDS: CARVEDILOL 12.5MG TABLET PO SCH ×2 (08:26→21:00)
[2017-07-13] MEDS ORDERED: POTASSIUM CHLORIDE 20MEQ TABLET SR PO SCH (14:45)
[2017-07-13] MEDS: PREDNISONE 20MG TABLET PO SCH (14:46)
[2017-07-13] MEDS ORDERED: POTASSIUM CHLORIDE INJ 40 MEQ in DEXT 5% WATER 500 ML IV SCH (15:00)
[2017-07-13] MEDS: VANCOMYCIN 1500MG in DEXTROSE 5% WATER 250ML IV SCH (17:12)
[2017-07-14] VITALS: BP 95/61
[2017-07-14] MEDS: PIPERACILLIN/TAZ 3.375G PREMIX 50 ML IV SCH ×2 (02:37→08:56)
[2017-07-14] MEDS: HYDROMORPHONE HCL/PF 2MG/ML CPJ IV PRN ×4 (02:51→19:42)
[2017-07-14 04:00] VITALS: BP 99/74
[2017-07-14] MEDS: VANCOMYCIN 1500MG in DEXTROSE 5% WATER 250ML IV SCH (05:42)
[2017-07-14 06:39] LABS: HEMATOCRIT 34.3 % (42.0-52.0); HEMOGLOBIN 11.7 g/dL (14.0-18.0); MEAN CORPUSCULAR HEMOGLOBIN 29.7 pg (28.0-32.0); MEAN CORPUSCULAR VOLUME 87.3 fL (80.0-94.0); PLATELET 323 x1000/uL (130-400); RED BLOOD CELL COUNT 3.93 mill/uL (4.7-6.1); RED CELL DISTRIBUTION WIDTH 15.6 % (11.6-14.6)
[2017-07-14 08:00] VITALS: BP 102/69
[2017-07-14] MEDS: CARVEDILOL 12.5MG TABLET PO SCH ×2 (08:33→20:19)
[2017-07-14] MEDS: FAMOTIDINE 20MG TABLET PO SCH ×2 (08:56→20:20)
[2017-07-14] MEDS: FUROSEMIDE 40MG/4ML VIAL IVP SCH (08:56)
[2017-07-14] MEDS: ALLOPURINOL 100 MG TABLET PO SCH (08:56)
[2017-07-14] MEDS: COLCHICINE 0.6MG TABLET PO SCH (08:56)
[2017-07-14] MEDS: ASPIRIN 81MG EC TABLET PO SCH (08:56)
[2017-07-14] MEDS: PREDNISONE 20MG TABLET PO SCH (08:56)
[2017-07-14] MEDS: POTASSIUM CHLORIDE 10MEQ TABLET SR PO SCH ×2 (08:56→16:10)
[2017-07-14] MEDS: ENOXAPARIN 30MG/0.3ML SYR SUBCUT SCH ×2 (08:57→20:20)
[2017-07-14] MEDS: DEXT 5%/0.45% NACL 1000ML 1,000 ML IV SCH (09:30)
[2017-07-14 10:02] LABS: CHLORIDE 93 mEq/L (98-107)
[2017-07-14 12:00] VITALS: BP 102/56
[2017-07-14 16:00] VITALS: BP 100/70
[2017-07-14] MEDS ORDERED: POTASSIUM CHLORIDE 20MEQ TABLET SR PO NR (16:00)
[2017-07-14 19:39] VITALS: BP 98/65
[2017-07-15] VITALS (7 sets, daily range): BP systolic 94–103; BP diastolic 57–73
[2017-07-15] MEDS: PREDNISONE 20MG TABLET PO SCH (07:39)
[2017-07-15] MEDS: IBUPROFEN 800MG TABLET PO PRN (07:40)
[2017-07-15 07:53] LABS: HEMATOCRIT 36.6 % (42.0-52.0); HEMOGLOBIN 12.1 g/dL (14.0-18.0); MEAN CORPUSCULAR HEMOGLOBIN 29.2 pg (28.0-32.0); PLATELET 383 x1000/uL (130-400); RED BLOOD CELL COUNT 4.16 mill/uL (4.7-6.1); RED CELL DISTRIBUTION WIDTH 16.2 % (11.6-14.6)
[2017-07-15 08:29] LABS: CHLORIDE 97 mEq/L (98-107)
[2017-07-15] MEDS: CARVEDILOL 12.5MG TABLET PO SCH (08:53)
[2017-07-15] MEDS: COLCHICINE 0.6MG TABLET PO SCH (09:15)
[2017-07-15] MEDS: FUROSEMIDE 40MG/4ML VIAL IVP SCH (09:15)
[2017-07-15] MEDS: FAMOTIDINE 20MG TABLET PO SCH (09:15)
[2017-07-15] MEDS: ASPIRIN 81MG EC TABLET PO SCH (09:15)
[2017-07-15] MEDS: POTASSIUM CHLORIDE 10MEQ TABLET SR PO SCH ×2 (09:15→17:00)
[2017-07-15] MEDS: ENOXAPARIN 30MG/0.3ML SYR SUBCUT SCH (09:17)
[2017-07-15] MEDS: ALLOPURINOL 100 MG TABLET PO SCH (09:17)
[2017-07-15] MEDS: DEXT 5%/0.45% NACL 1000ML 1,000 ML IV SCH (09:18)
[2017-07-15] MEDS: HYDROMORPHONE HCL/PF 2MG/ML CPJ IV PRN (09:20)
[2017-07-15] MEDS ORDERED: OXYCODONE HCL/ACETAMINOPHEN 5/325MG TABLET PO PRN (15:00)
[2017-07-15] MEDS ORDERED: FURO40TA5 PO (15:19)
[2017-07-15] MEDS ORDERED: FAMO-134 PO (15:21)
[2017-07-15] MEDS ORDERED: P20 PO (15:24)
[2017-07-16] MEDS ORDERED: FUROSEMIDE 40MG TABLET PO SCH (09:00)
[2017-07-16] MEDS ORDERED: FUROSEMIDE 20MG TABLET PO SCH (09:00)
== END 2017-07-15 20:25 | DRG 871 ==
LOC: ER 00:14 → 6EST 03:16 → ENRESERV 04:13 → 8WST 10:22
PROVIDERS: ADMIT Internal Medicine; ATTEND Internal Medicine
PROC: 0S9C3ZX Drainage of Right Knee Joint, Percutaneous Approach, Diagnostic (ICD-10-PCS; principal; 2017-07-12)
DX: A41.9 Sepsis, unspecified organism (principal); I50.43 Acute on chronic combined systolic (congestive) and diastolic (congestive) heart failure; F11.20 Opioid dependence, uncomplicated; E87.1 Hypo-osmolality and hyponatremia; E66.9 Obesity, unspecified; I11.0 Hypertensive heart disease with heart failure; E87.6 Hypokalemia; I25.5 Ischemic cardiomyopathy; D64.9 Anemia, unspecified; J44.9 Chronic obstructive pulmonary disease, unspecified; M10.9 Gout, unspecified; Z91.19 Patient's noncompliance with other medical treatment and regimen; Z91.013 Allergy to seafood; Z79.2 Long term (current) use of antibiotics; Z79.899 Other long term (current) drug therapy; Z68.34 Body mass index [BMI] 34.0-34.9, adult
CPT/HCPCS: 20611; 36415; 71045; 73702; 74176; 76705; 76881; 80048; 80053; 80202; 80305; 81003; 82550; 82553; 82945; 83036; 83605; 83690; 83735; 83880; 84484; 84550; 85025; 85027; 85610; 87040; 87070; 87077; 87086; 87186; 87205; 88108; 89050; 89060; 93005; 93306; 97162; 99285; C9113; G0482; J1170; J1650; J1940; J1956; J2270; J2405; J2543; J3370; J3480; J3490; J7030; J7060; J7512; Q9967

== ENCOUNTER 2017-11-13 00:51 | Emergency (ER) | payer OTHER ==
[~2017-11-13] VITALS: Ht 188 cm; Wt 139.0 kg
[~2017-11-13 00:51] MED LIST changes: +ASPI-1159 PO; -AZIT500T5 PO; +COLC0.6C3 PO; -COLC0.6T2 PO; +COR12 PO; -COR3 PO; +FAMO-134 PO; +FURO40TA5 PO; -FURO80TA3 PO; -LISI2.5T47 PO; +METF500T6 PO; +P20 PO; -POTA10TA15 PO; +POTA20TA82 PO; +SACU1TAB7 PO; +SIMV10TA6 PO
[2017-11-13] MEDS ORDERED: KETOROLAC 30MG/ML VIAL IV STA (01:10)
[2017-11-13] MEDS ORDERED: METOCLOPRAMIDE HCL 10MG/2ML VIAL IV STA (01:10)
[2017-11-13 02:16] LABS: BASOPHILS % 0.7 % (0.0-2.0); EOSINOPHILS % 1.6 % (0.0-5.0); HEMATOCRIT. 41.5 % (42.0-52.0); HEMOGLOBIN. 14.4 g/dL (14.0-18.0); INR 1.1; LYMPHOCYTES % 13.6 % (20.0-50.0); MEAN CORPUSCULAR HEMOGLOBIN 31.8 pg (28.0-32.0); MEAN CORPUSCULAR VOLUME 91.3 fL (80.0-94.0); MEAN PLATELET VOLUME 7.4 fl (7.4-10.4); NEUTROPHILS % 75.1 % (40.0-76.0); PARTIAL THROMBOPLASTIN TIME 28.5 sec (23.4-31.0); PLATELET 282 x1000/uL (130-400); PROTHROMBIN TIME 10.7 sec (9.1-11.1); RED BLOOD CELL COUNT 4.54 mill/uL (4.7-6.1); RED CELL DISTRIBUTION WIDTH 12.9 % (11.6-14.6)
[2017-11-13 02:37] LABS: CHLORIDE 106 mEq/L (98-107)
[2017-11-13 04:18] LABS: CLARITY URINE CLEAR (CLEAR); COLOR URINE YELLOW (YELLOW); KETONES URINE NEGATIVE (NEGATIVE); LEUKOCYTE ESTERASE URINE NEGATIVE (NEGATIVE); NITRITE URINE NEGATIVE (NEGATIVE); OCCULT BLOOD URINE NEGATIVE (NEGATIVE); PROTEIN URINE NEGATIVE (NEGATIVE); SPECIFIC GRAVITY URINE 1.007 (1.005-1.030); UROBILINOGEN URINE 0.2 E.U./dL (0.2-1.0)
[2017-11-13 06:08] VITALS: BP 133/90
== END 2017-11-13 05:58 | disposition home or self-care (01) ==
LOC: ER 00:51 → CANBEDREQ 07:23
DX: K56.7 Ileus, unspecified (principal); I11.0 Hypertensive heart disease with heart failure; I50.9 Heart failure, unspecified; M10.9 Gout, unspecified; Z79.82 Long term (current) use of aspirin
CPT/HCPCS: 36415; 74176; 80053; 81003; 83690; 85025; 85610; 85730; 96374; 99284; J1885; J2765

== ENCOUNTER 2018-05-04 18:53 | Inpatient (IN) | payer MEDICARE, MEDICAID ==
[~2018-05-04] VITALS: Ht 188 cm; Wt 136.1 kg
[~2018-05-04 18:53] MED LIST changes: +ATOR10TA PO; -FURO40TA5 PO; +FURO80TA87 MT; +IBUP-2029 MT; +METF-414 PO; -METF500T6 PO; -SIMV10TA6 PO
[2018-05-04] MEDS ORDERED: KETOROLAC 30MG/ML VIAL IV STA (20:10)
[2018-05-04] MEDS ORDERED: METHYLPREDNISOLONE SOD SUCC 125 MG/2 ML VIAL IV STA (20:10)
[2018-05-04] MEDS ORDERED: ONDANSETRON HCL 4MG/2ML INJ IV STA (20:10)
[2018-05-04] MEDS ORDERED: MORPHINE SULFATE 4 MG/ML CPJ (NOT FOR IM USE) IV STA (20:10)
[2018-05-04] MEDS ORDERED: SODIUM CHLORIDE 0.9% 1,000 ML IV ONE (20:10)
[2018-05-04] MEDS ORDERED: ACETAMINOPHEN 325MG TABLET PO STA (20:10)
[2018-05-04] MEDS ORDERED: IPRATROPIUM/ALBUTEROL 0.5-3(2.5)MG/3ML NEB HHN ONE (20:15)
[2018-05-04 20:56] LABS: BG BASE EXCESS -2.3 mmol/L (-2.0-2.0); BG CARBOXYHEMOGLOBIN 0.9 % (0.5-1.5); BG DEOXYHEMOGLOBIN 6.6 % (0.0-5.0); BG FRACTION INSPIRED OXYGEN 21; BG HCO3 ACT 20.6 mmol/L (22.0-26.0); BG METHEMOGLOBIN 0.4 % (0.0-1.5); BG OXYGEN SATURATION 93.3 % (92.0-98.5); BG OXYHEMOGLOBIN 92.1 % (94.0-97.0); BG PCO2 31.1 mmHg (35.0-45.0); BG PH 7.438 (7.350-7.450); BG SAMPLE SITE RIGHT RADIAL; BG TOTAL HEMOGLOBIN 16.8 g/dL (12.0-18.0); BG VENT MODE ROOM AIR
[2018-05-04 21:27] LABS: HEMATOCRIT. 40.5 % (42.0-52.0); HEMOGLOBIN. 13.7 g/dL (14.0-18.0); MEAN CORPUSCULAR HEMOGLOBIN 30.4 pg (28.0-32.0); MEAN CORPUSCULAR VOLUME 89.9 fL (80.0-94.0); MEAN PLATELET VOLUME 7.5 fl (7.4-10.4); PLATELET 314 x1000/uL (130-400); RED BLOOD CELL COUNT 4.51 mill/uL (4.7-6.1); RED CELL DISTRIBUTION WIDTH 13.2 % (11.6-14.6)
[2018-05-04 21:30] LABS: CHLORIDE 106 mEq/L (98-107)
[2018-05-04 21:32] LABS: INR 1.1; PARTIAL THROMBOPLASTIN TIME 33.8 sec (23.4-31.0); PROTHROMBIN TIME 10.8 sec (9.1-11.1)
[2018-05-04 21:33] LABS: ETHANOL BLOOD < 10 mg/dL
[2018-05-04 21:38] LABS: CREATINE KINASE 66 IU/L (39-308)
[2018-05-04 21:47] LABS: PLATELET ESTIMATE NORMAL
[2018-05-04] MEDS ORDERED: LEVOFLOXACIN 750MG PREMIX 150 ML IV ONE (22:45)
[2018-05-05 02:20] VITALS: BP 108/74
[2018-05-05 03:11] VITALS: BP 108/74
[2018-05-05 04:00] VITALS: BP 121/79
[2018-05-05] MEDS ORDERED: DOCUSATE SODIUM 250MG CAPSULE PO PRN (04:00)
[2018-05-05] MEDS ORDERED: COLCHICINE 0.6MG TABLET PO PRN (04:00)
[2018-05-05] MEDS ORDERED: HYDROCODONE/ACETAMINOPHEN 10/325MG TABLET PO PRN (04:00)
[2018-05-05] MEDS ORDERED: HYDR-4009 PO (04:09)
[2018-05-05] MEDS: IPRATROPIUM/ALBUTEROL 0.5-3(2.5)MG/3ML NEB HHN SCH ×5 (04:20→21:30)
[2018-05-05] MEDS: MORPHINE SULFATE 4 MG/ML CPJ (NOT FOR IM USE) IV PRN ×2 (05:49→12:09)
[2018-05-05 07:38] LABS: CLARITY URINE CLEAR (CLEAR); COLOR URINE AMBER (YELLOW); KETONES URINE TRACE (NEGATIVE); LEUKOCYTE ESTERASE URINE NEGATIVE (NEGATIVE); NITRITE URINE NEGATIVE (NEGATIVE); OCCULT BLOOD URINE NEGATIVE (NEGATIVE); PROTEIN URINE 1+ (NEGATIVE); SPECIFIC GRAVITY URINE 1.029 (1.005-1.030)
[2018-05-05 07:46] LABS: *AMPHETAMINES SCREEN URINE NEGATIVE (NEGATIVE); *BARBITURATES SCREEN URINE NEGATIVE (NEGATIVE); *BENZODIAZEPINES SCREEN URINE NEGATIVE (NEGATIVE); *COCAINE SCREEN URINE PRESUMTIVE POSITIVE (NEGATIVE); PHENCYCLIDINE URINE SCREEN NEGATIVE (NEGATIVE)
[2018-05-05 07:47] LABS: CANNABINOID URINE SCREEN NEGATIVE (NEGATIVE); METHADONE URINE SCREEN NEGATIVE (NEGATIVE); OPIATES URINE SCREEN PRESUMTIVE POSITIVE (NEGATIVE)
[2018-05-05] MEDS ORDERED: ENOXAPARIN 40MG/0.4ML SYR SUBCUT SCH (09:00)
[2018-05-05] MEDS ORDERED: FUROSEMIDE 40MG/4ML VIAL IVP SCH (09:00)
[2018-05-05] MEDS: ALLOPURINOL 100 MG TABLET PO SCH (10:17)
[2018-05-05] MEDS: CARVEDILOL 12.5MG TABLET PO SCH ×2 (10:18→21:00)
[2018-05-05] MEDS: METHYLPREDNISOLONE SOD SUCC 40 MG/ML VIAL IV SCH ×3 (10:22→22:48)
[2018-05-05] MEDS ORDERED: IBUPROFEN 800MG TABLET PO PRN (12:00)
[2018-05-05] MEDS: AZITHROMYCIN 500 MG TABLET PO SCH (12:09)
[2018-05-05 12:21] VITALS: BP 115/71
[2018-05-05 12:53] LABS: HEMATOCRIT. 36.5 % (42.0-52.0); HEMOGLOBIN. 12.3 g/dL (14.0-18.0); MEAN CORPUSCULAR HEMOGLOBIN 30.3 pg (28.0-32.0); MEAN CORPUSCULAR VOLUME 90.3 fL (80.0-94.0); MEAN PLATELET VOLUME 7.3 fl (7.4-10.4); PLATELET 276 x1000/uL (130-400); RED BLOOD CELL COUNT 4.04 mill/uL (4.7-6.1); RED CELL DISTRIBUTION WIDTH 13.1 % (11.6-14.6)
[2018-05-05 13:06] LABS: CHLORIDE 109 mEq/L (98-107)
[2018-05-05 16:07] VITALS: BP 101/65
[2018-05-05 16:42] LABS: PLATELET ESTIMATE NORMAL
[2018-05-05 20:00] VITALS: BP 99/61
[2018-05-05] MEDS: COLCHICINE 0.6MG TABLET PO SCH (22:48)
[2018-05-05] MEDS: ENOXAPARIN 30MG/0.3ML SYR SUBCUT SCH (23:12)
[2018-05-06] VITALS: BP 113/77
[2018-05-06] MEDS: MORPHINE SULFATE 4 MG/ML CPJ (NOT FOR IM USE) IV PRN ×4 (00:16→21:29)
[2018-05-06 04:00] VITALS: BP 113/80
[2018-05-06] MEDS: IPRATROPIUM/ALBUTEROL 0.5-3(2.5)MG/3ML NEB HHN SCH ×5 (04:15→21:05)
[2018-05-06] MEDS: METHYLPREDNISOLONE SOD SUCC 40 MG/ML VIAL IV SCH (05:11)
[2018-05-06 06:21] LABS: HEMATOCRIT. 37.8 % (42.0-52.0); HEMOGLOBIN. 12.9 g/dL (14.0-18.0); MEAN CORPUSCULAR HEMOGLOBIN 30.8 pg (28.0-32.0); MEAN PLATELET VOLUME 7.6 fl (7.4-10.4); PLATELET 294 x1000/uL (130-400); RED CELL DISTRIBUTION WIDTH 13.3 % (11.6-14.6)
[2018-05-06 06:37] LABS: CHLORIDE 112 mEq/L (98-107)
[2018-05-06 08:00] VITALS: BP 97/66
[2018-05-06] MEDS: CARVEDILOL 12.5MG TABLET PO SCH ×2 (09:00→21:00)
[2018-05-06] MEDS ORDERED: FUROSEMIDE 40MG/4ML VIAL IVP SCH (09:00)
[2018-05-06] MEDS: ENOXAPARIN 30MG/0.3ML SYR SUBCUT SCH ×2 (09:00→21:28)
[2018-05-06] MEDS: AZITHROMYCIN 500 MG TABLET PO SCH (09:32)
[2018-05-06] MEDS: COLCHICINE 0.6MG TABLET PO SCH ×2 (09:32→21:28)
[2018-05-06] MEDS: ALLOPURINOL 100 MG TABLET PO SCH (09:33)
[2018-05-06 12:03] VITALS: BP 108/69
[2018-05-06 13:54] LABS: PLATELET ESTIMATE NORMAL
[2018-05-06 16:13] VITALS: BP 96/62
[2018-05-06 20:00] VITALS: BP 115/70
[2018-05-07] VITALS (8 sets, daily range): BP systolic 100–106; BP diastolic 65–75
[2018-05-07] MEDS: IPRATROPIUM/ALBUTEROL 0.5-3(2.5)MG/3ML NEB HHN SCH ×6 (00:50→20:00)
[2018-05-07] MEDS ORDERED: PREDNISONE 20MG TABLET PO SCH (09:00)
[2018-05-07] MEDS: CARVEDILOL 12.5MG TABLET PO SCH ×2 (09:00→20:04)
[2018-05-07] MEDS: COLCHICINE 0.6MG TABLET PO SCH ×2 (09:34→20:32)
[2018-05-07] MEDS: ALLOPURINOL 100 MG TABLET PO SCH (09:34)
[2018-05-07] MEDS: ENOXAPARIN 30MG/0.3ML SYR SUBCUT SCH ×2 (09:35→20:04)
[2018-05-07] MEDS: MORPHINE SULFATE 4 MG/ML CPJ (NOT FOR IM USE) IV PRN ×3 (09:38→19:57)
[2018-05-07] MEDS: IBUPROFEN 800MG TABLET PO SCH ×2 (13:21→22:11)
[2018-05-07] MEDS: METHYLPREDNISOLONE SOD SUCC 125 MG/2 ML VIAL IV SCH ×2 (15:00→22:07)
[2018-05-08] VITALS: BP 110/79
[2018-05-08 04:00] VITALS: BP 124/87
[2018-05-08] MEDS: IBUPROFEN 800MG TABLET PO SCH (05:46)
[2018-05-08] MEDS: METHYLPREDNISOLONE SOD SUCC 125 MG/2 ML VIAL IV SCH (05:46)
[2018-05-08 08:00] VITALS: BP 111/81
[2018-05-08] MEDS: IPRATROPIUM/ALBUTEROL 0.5-3(2.5)MG/3ML NEB HHN SCH ×3 (08:33→16:00)
[2018-05-08] MEDS: ENOXAPARIN 30MG/0.3ML SYR SUBCUT SCH (09:00)
[2018-05-08] MEDS: COLCHICINE 0.6MG TABLET PO SCH (09:59)
[2018-05-08] MEDS: ALLOPURINOL 100 MG TABLET PO SCH (09:59)
[2018-05-08] MEDS: CARVEDILOL 12.5MG TABLET PO SCH (09:59)
[2018-05-08 12:00] VITALS: BP 106/73
[2018-05-08 14:23] VITALS: BP 106/73
== END 2018-05-08 15:50 | disposition home or self-care (01) | DRG 871 ==
LOC: ER 18:53 → 5WST 22:37 → EDBEDREQ 22:45 → EDBEDREQTM 22:45 → ENRESERV 05-05 00:19 → 5WST 05-06 08:05
PROVIDERS: ADMIT Internal Medicine; ATTEND Internal Medicine
DX: A41.9 Sepsis, unspecified organism (principal); J96.00 Acute respiratory failure, unspecified whether with hypoxia or hypercapnia; I50.22 Chronic systolic (congestive) heart failure; J44.1 Chronic obstructive pulmonary disease with (acute) exacerbation; I42.9 Cardiomyopathy, unspecified; J68.0 Bronchitis and pneumonitis due to chemicals, gases, fumes and vapors; M10.9 Gout, unspecified; E66.9 Obesity, unspecified; I11.0 Hypertensive heart disease with heart failure; D64.9 Anemia, unspecified; E78.5 Hyperlipidemia, unspecified; F14.90 Cocaine use, unspecified, uncomplicated; T38.0X5A Adverse effect of glucocorticoids and synthetic analogues, initial encounter; T40.5X1A Poisoning by cocaine, accidental (unintentional), initial encounter; Y92.89 Other specified places as the place of occurrence of the external cause; Z91.013 Allergy to seafood; Z79.899 Other long term (current) drug therapy; Z79.82 Long term (current) use of aspirin; Z68.38 Body mass index [BMI] 38.0-38.9, adult; Z71.51 Drug abuse counseling and surveillance of drug abuser; Z71.3 Dietary counseling and surveillance
CPT/HCPCS: 36415; 36600; 71045; 80048; 80305; 82375; 82550; 82805; 83605; 83880; 84484; 87804; 93005; 97163; 99285; J1650; J1885; J1940; J1956; J2270; J2405; J2920; J2930; J7030; J7620

== ENCOUNTER 2018-09-24 01:24 | Inpatient (IN) | payer MEDICARE, MEDICAID ==
[~2018-09-24] VITALS: Ht 185.4 cm; Wt 138.3 kg
[~2018-09-24 01:24] MED LIST changes: -ASPI-1159 PO; -FAMO-134 PO; +HYDR-4009 PO; -METF-414 PO; -P20 PO
[2018-09-24 03:13] LABS: BASOPHILS % 0.7 % (0.0-2.0); HEMATOCRIT. 41.7 % (42.0-52.0); HEMOGLOBIN. 14.1 g/dL (14.0-18.0); LYMPHOCYTES % 27.1 % (20.0-50.0); MEAN CORPUSCULAR HEMOGLOBIN 30.6 pg (28.0-32.0); MEAN CORPUSCULAR VOLUME 90.4 fL (80.0-94.0); MONOCYTES % 6.5 % (2.0-8.0); NEUTROPHILS % 63.7 % (40.0-76.0); PLATELET 264 x1000/uL (130-400); RED BLOOD CELL COUNT 4.61 mill/uL (4.7-6.1); RED CELL DISTRIBUTION WIDTH 13.2 % (11.6-14.6)
[2018-09-24 03:16] LABS: CHLORIDE 106 mEq/L (98-107)
[2018-09-24] MEDS ORDERED: MORPHINE SULFATE 4 MG/ML CPJ (NOT FOR IM USE) IV ONE (04:45)
[2018-09-24] MEDS ORDERED: ALBUTEROL (0.083%) 2.5MG/3ML NEB HHN STA (08:35)
[2018-09-24] MEDS ORDERED: IPRATROPIUM BROMIDE (0.02%) 0.5MG/2.5ML NEB HHN STA (08:35)
[2018-09-24] MEDS ORDERED: FUROSEMIDE 20MG/2ML VIAL IVP ONE (08:45)
[2018-09-24] MEDS ORDERED: ACETAMINOPHEN 325MG TABLET PO PRN (09:15)
[2018-09-24] MEDS ORDERED: ONDANSETRON HCL 4MG/2ML INJ IV PRN (09:15)
[2018-09-24] MEDS ORDERED: POTASSIUM CHLORIDE 20MEQ TABLET SR PO NR (09:30)
[2018-09-24] MEDS ORDERED: LOSARTAN POTASSIUM 25 MG TABLET PO NR (10:00)
[2018-09-24 12:00] VITALS: BP 121/91
[2018-09-24] MEDS ORDERED: FUROSEMIDE 40MG/4ML VIAL IVP SCH (12:00)
[2018-09-24 12:07] VITALS: BP 121/91
[2018-09-24] MEDS ORDERED: ASPI-1393 MT (12:16)
[2018-09-24] MEDS ORDERED: DOCU250C19 MT (12:16)
[2018-09-24] MEDS ORDERED: CLIN300C11 MT (12:16)
[2018-09-24] MEDS ORDERED: AM500 MT (12:16)
[2018-09-24] MEDS: ENOXAPARIN 40MG/0.4ML SYR SUBCUT SCH ×2 (13:21→21:00)
[2018-09-24] MEDS: MORPHINE SULFATE 2 MG/ML CPJ (NOT FOR IM USE) IV PRN (14:23)
[2018-09-24 16:00] VITALS: BP 94/63
[2018-09-24] MEDS: FUROSEMIDE 40MG/4ML VIAL IVP SCH (16:43)
[2018-09-24] MEDS ORDERED: POTASSIUM CHLORIDE 20MEQ TABLET SR PO SCH (17:00)
[2018-09-24 19:58] VITALS: BP 114/83
[2018-09-24] MEDS: CARVEDILOL 6.25 MG TABLET PO SCH (21:02)
[2018-09-24] MEDS: DOCUSATE SODIUM 250MG CAPSULE PO SCH (22:30)
[2018-09-24] MEDS: BUDESONIDE 0.5MG/2ML NEB HHN SCH (23:54)
[2018-09-24] MEDS: IPRATROPIUM/ALBUTEROL 0.5-3(2.5)MG/3ML NEB HHN PRN (23:54)
[2018-09-25 00:21] VITALS: BP 106/78
[2018-09-25 04:00] VITALS: BP 108/77
[2018-09-25] MEDS: FUROSEMIDE 40MG/4ML VIAL IVP SCH ×2 (06:16→16:37)
[2018-09-25 06:47] LABS: BASOPHILS % 0.7 % (0.0-2.0); EOSINOPHILS % 1.9 % (0.0-5.0); HEMATOCRIT. 41.9 % (42.0-52.0); HEMOGLOBIN. 14.6 g/dL (14.0-18.0); LYMPHOCYTES % 19.7 % (20.0-50.0); MEAN CORPUSCULAR HEMOGLOBIN 31.2 pg (28.0-32.0); MEAN CORPUSCULAR VOLUME 89.6 fL (80.0-94.0); MEAN PLATELET VOLUME 7.3 fl (7.4-10.4); MONOCYTES % 7.8 % (2.0-8.0); NEUTROPHILS % 69.9 % (40.0-76.0); PLATELET 281 x1000/uL (130-400); RED BLOOD CELL COUNT 4.68 mill/uL (4.7-6.1); RED CELL DISTRIBUTION WIDTH 13.4 % (11.6-14.6)
[2018-09-25 06:55] LABS: CHLORIDE 107 mEq/L (98-107)
[2018-09-25 08:00] VITALS: BP 119/84
[2018-09-25] MEDS: POTASSIUM CHLORIDE 20MEQ TABLET SR PO SCH (08:32)
[2018-09-25] MEDS: ASPIRIN 81MG TABLET PO SCH (08:32)
[2018-09-25] MEDS: DOCUSATE SODIUM 250MG CAPSULE PO SCH ×2 (08:32→16:37)
[2018-09-25] MEDS: CARVEDILOL 6.25 MG TABLET PO SCH ×2 (08:33→21:00)
[2018-09-25] MEDS: MORPHINE SULFATE 2 MG/ML CPJ (NOT FOR IM USE) IV PRN ×2 (08:33→23:19)
[2018-09-25] MEDS: ENOXAPARIN 40MG/0.4ML SYR SUBCUT SCH ×2 (08:34→21:00)
[2018-09-25] MEDS: LOSARTAN POTASSIUM 25 MG TABLET PO SCH (08:41)
[2018-09-25 12:00] VITALS: BP 116/85
[2018-09-25] MEDS ORDERED: GUAIFENESIN-DM 200MG-20MG/10ML UDC PO PRN (14:15)
[2018-09-25 20:00] VITALS: BP 101/77
[2018-09-25] MEDS: BUDESONIDE 0.5MG/2ML NEB HHN SCH (20:00)
[2018-09-26] VITALS: BP 101/73
[2018-09-26 04:00] VITALS: BP 102/68
[2018-09-26] MEDS: FUROSEMIDE 40MG/4ML VIAL IVP SCH (06:30)
[2018-09-26 07:51] LABS: BASOPHILS % 0.9 % (0.0-2.0); EOSINOPHILS % 2.6 % (0.0-5.0); HEMATOCRIT. 44.3 % (42.0-52.0); HEMOGLOBIN. 14.5 g/dL (14.0-18.0); LYMPHOCYTES % 23.3 % (20.0-50.0); MEAN CORPUSCULAR HEMOGLOBIN 29.9 pg (28.0-32.0); MEAN CORPUSCULAR VOLUME 91.2 fL (80.0-94.0); MEAN PLATELET VOLUME 7.2 fl (7.4-10.4); MONOCYTES % 8.9 % (2.0-8.0); NEUTROPHILS % 64.3 % (40.0-76.0); PLATELET 250 x1000/uL (130-400); RED BLOOD CELL COUNT 4.86 mill/uL (4.7-6.1); RED CELL DISTRIBUTION WIDTH 13.7 % (11.6-14.6)
[2018-09-26 08:00] VITALS: BP 108/88
[2018-09-26] MEDS: BUDESONIDE 0.5MG/2ML NEB HHN SCH (08:30)
[2018-09-26 08:41] LABS: CHLORIDE 106 mEq/L (98-107)
[2018-09-26] MEDS: IPRATROPIUM/ALBUTEROL 0.5-3(2.5)MG/3ML NEB HHN PRN (08:44)
[2018-09-26] MEDS: LOSARTAN POTASSIUM 25 MG TABLET PO SCH (09:00)
[2018-09-26] MEDS: CARVEDILOL 6.25 MG TABLET PO SCH (09:00)
[2018-09-26] MEDS: ASPIRIN 81MG TABLET PO SCH (09:46)
[2018-09-26] MEDS: POTASSIUM CHLORIDE 20MEQ TABLET SR PO SCH (09:46)
[2018-09-26] MEDS: DOCUSATE SODIUM 250MG CAPSULE PO SCH (09:46)
[2018-09-26] MEDS: ENOXAPARIN 40MG/0.4ML SYR SUBCUT SCH (09:46)
[2018-09-26 12:00] VITALS: BP 123/92
[2018-09-26 12:19] VITALS: BP 123/92
== END 2018-09-26 13:16 | disposition home or self-care (01) | DRG 292 ==
LOC: ER 01:24 → EDBEDREQ 07:57 → 8WST 08:37 → EDBEDREQ 08:40 → EDBEDREQTM 08:42 → ENRESERV 10:51 → 8WST 12:01
PROVIDERS: ADMIT Internal Medicine; ATTEND Internal Medicine
DX: I11.0 Hypertensive heart disease with heart failure (principal); Z68.41 Body mass index [BMI] 40.0-44.9, adult; I50.23 Acute on chronic systolic (congestive) heart failure; I42.0 Dilated cardiomyopathy; E11.9 Type 2 diabetes mellitus without complications; J44.9 Chronic obstructive pulmonary disease, unspecified; E78.5 Hyperlipidemia, unspecified; I44.7 Left bundle-branch block, unspecified; Z96.659 Presence of unspecified artificial knee joint; M10.9 Gout, unspecified; J40 Bronchitis, not specified as acute or chronic; G47.33 Obstructive sleep apnea (adult) (pediatric); E66.09 Other obesity due to excess calories; E87.6 Hypokalemia; K59.09 Other constipation; Z82.49 Family history of ischemic heart disease and other diseases of the circulatory system; Z83.3 Family history of diabetes mellitus; Z71.3 Dietary counseling and surveillance; Z91.013 Allergy to seafood; Z79.899 Other long term (current) drug therapy
CPT/HCPCS: 36415; 71045; 76700; 80048; 83735; 83880; 84484; 93005; 94640; 99285; J1650; J1940; J2270; J7611; J7620; J7626

== ENCOUNTER 2018-11-22 16:05 | Inpatient (IN) | payer MEDICARE, MEDICAID ==
[~2018-11-22] VITALS: Ht 185.4 cm; Wt 143.0 kg
[~2018-11-22 16:05] MED LIST changes: +ASPI-1393 MT; +CLIN300C11 MT; +DOCU250C19 MT
[2018-11-22 16:45] LABS: BASOPHILS % 1.3 % (0.0-2.0); EOSINOPHILS % 0.6 % (0.0-5.0); HEMATOCRIT. 43.1 % (42.0-52.0); HEMOGLOBIN. 14.7 g/dL (14.0-18.0); LYMPHOCYTES % 17.3 % (20.0-50.0); MEAN CORPUSCULAR HEMOGLOBIN 30.7 pg (28.0-32.0); MEAN CORPUSCULAR VOLUME 89.9 fL (80.0-94.0); MEAN PLATELET VOLUME 7.4 fl (7.4-10.4); MONOCYTES % 7.2 % (2.0-8.0); NEUTROPHILS % 73.6 % (40.0-76.0); PLATELET 245 x1000/uL (130-400); RED BLOOD CELL COUNT 4.79 mill/uL (4.7-6.1); RED CELL DISTRIBUTION WIDTH 13.8 % (11.6-14.6)
[2018-11-22] MEDS ORDERED: IPRATROPIUM BROMIDE (0.02%) 0.5MG/2.5ML NEB HHN STA (16:47)
[2018-11-22] MEDS ORDERED: METHYLPREDNISOLONE SOD SUCC 125 MG/2 ML VIAL IV STA (16:47)
[2018-11-22] MEDS ORDERED: ALBUTEROL (0.083%) 2.5MG/3ML NEB HHN STA ×2 (16:47→19:23)
[2018-11-22 16:53] LABS: CHLORIDE 104 mEq/L (98-107)
[2018-11-22] MEDS ORDERED: ASPIRIN 81MG TABLET PO ONE (17:00)
[2018-11-22] MEDS ORDERED: MORPHINE SULFATE 4 MG/ML CPJ (NOT FOR IM USE) IV ONE (18:15)
[2018-11-22] MEDS ORDERED: ONDANSETRON HCL 4MG/2ML INJ IV ONE (18:15)
[2018-11-22 20:15] VITALS: BP 113/86
[2018-11-22] MEDS ORDERED: ONDA8TAB6 PO (22:17)
[2018-11-22] MEDS ORDERED: BECL10.62 IH (22:23)
[2018-11-22] MEDS ORDERED: ALBU18HF2 IH (22:30)
[2018-11-22] MEDS ORDERED: ONDANSETRON HCL 4MG/2ML INJ IV PRN (22:45)
[2018-11-22] MEDS ORDERED: MORPHINE SULFATE 2 MG/ML CPJ (NOT FOR IM USE) IV PRN (22:45)
[2018-11-23 00:04] VITALS: BP 104/82
[2018-11-23] MEDS: FUROSEMIDE 40MG/4ML VIAL IVP SCH ×2 (00:57→09:33)
[2018-11-23] MEDS: ALBUTEROL (0.083%) 2.5MG/3ML NEB HHN SCH ×7 (01:25→19:50)
[2018-11-23] MEDS ORDERED: MORPHINE SULFATE 2 MG/ML CPJ (NOT FOR IM USE) IV PRN ×2 (03:30→10:45)
[2018-11-23 04:36] VITALS: BP 112/88
[2018-11-23 06:17] LABS: HEMATOCRIT 42.6 % (42.0-52.0); HEMOGLOBIN 14.9 g/dL (14.0-18.0); MEAN CORPUSCULAR HEMOGLOBIN 31.5 pg (28.0-32.0); MEAN CORPUSCULAR VOLUME 90.1 fL (80.0-94.0); PLATELET 244 x1000/uL (130-400); RED BLOOD CELL COUNT 4.73 mill/uL (4.7-6.1); RED CELL DISTRIBUTION WIDTH 14.3 % (11.6-14.6)
[2018-11-23 06:24] LABS: CHLORIDE 105 mEq/L (98-107)
[2018-11-23] MEDS: ACETAMINOPHEN WITH CODEINE 120-12MG/5ML UDC PO SCH ×3 (06:28→23:50)
[2018-11-23 08:00] VITALS: BP 99/67
[2018-11-23] MEDS ORDERED: KETOROLAC 30MG/ML VIAL IV PRN (08:30)
[2018-11-23] MEDS ORDERED: ENOXAPARIN 40MG/0.4ML SYR SUBCUT SCH (09:00)
[2018-11-23] MEDS: CARVEDILOL 12.5MG TABLET PO SCH ×3 (09:00→21:00)
[2018-11-23] MEDS: ENOXAPARIN 40MG/0.4ML SYR SUBCUT SCH ×3 (09:00→22:51)
[2018-11-23] MEDS: METHYLPREDNISOLONE SOD SUCC 40 MG/ML VIAL IV SCH ×2 (09:32→17:10)
[2018-11-23] MEDS: COLCHICINE 0.6MG TABLET PO SCH (09:33)
[2018-11-23] MEDS: POTASSIUM CHLORIDE 20MEQ TABLET SR PO SCH (09:33)
[2018-11-23] MEDS: ASPIRIN 81MG EC TABLET PO SCH (09:33)
[2018-11-23] MEDS: ALLOPURINOL 100 MG TABLET PO SCH (09:33)
[2018-11-23] MEDS: SACUBITRIL/VALSARTAN 49MG/51MG TABLET PO SCH ×2 (09:40→22:52)
[2018-11-23 12:00] VITALS: BP 94/69
[2018-11-23] MEDS: NITROGLYCERIN OINT 1GM/INCH UDPKT TD SCH ×2 (14:00→22:51)
[2018-11-23] MEDS: FUROSEMIDE 100MG/10ML VIAL IVP SCH ×2 (14:39→22:49)
[2018-11-23 16:00] VITALS: BP 86/61
[2018-11-23] MEDS ORDERED: HYDROCODONE/ACETAMINOPHEN 5/325MG TABLET PO PRN (17:00)
[2018-11-23 20:18] VITALS: BP 102/72
[2018-11-23] MEDS ORDERED: ATORVASTATIN CALCIUM 10MG TABLET PO SCH (21:00)
[2018-11-24 00:29] VITALS: BP 92/62
[2018-11-24] MEDS: METHYLPREDNISOLONE SOD SUCC 40 MG/ML VIAL IV SCH ×2 (02:21→10:29)
[2018-11-24 04:41] VITALS: BP 96/67
[2018-11-24] MEDS: ACETAMINOPHEN WITH CODEINE 120-12MG/5ML UDC PO SCH ×2 (05:55→14:00)
[2018-11-24 07:11] LABS: HEMATOCRIT. 38.9 % (42.0-52.0); HEMOGLOBIN. 13.1 g/dL (14.0-18.0); MEAN CORPUSCULAR HEMOGLOBIN 30.3 pg (28.0-32.0); MEAN CORPUSCULAR VOLUME 89.9 fL (80.0-94.0); MEAN PLATELET VOLUME 7.7 fl (7.4-10.4); PLATELET 236 x1000/uL (130-400); RED BLOOD CELL COUNT 4.33 mill/uL (4.7-6.1); RED CELL DISTRIBUTION WIDTH 14.1 % (11.6-14.6)
[2018-11-24 07:58] LABS: CHLORIDE 106 mEq/L (98-107)
[2018-11-24 08:00] VITALS: BP 101/65
[2018-11-24] MEDS: ALBUTEROL (0.083%) 2.5MG/3ML NEB HHN SCH ×4 (08:25→16:33)
[2018-11-24] MEDS: CARVEDILOL 12.5MG TABLET PO SCH (09:00)
[2018-11-24] MEDS: FUROSEMIDE 100MG/10ML VIAL IVP SCH (10:29)
[2018-11-24] MEDS: SACUBITRIL/VALSARTAN 49MG/51MG TABLET PO SCH (10:33)
[2018-11-24] MEDS: POTASSIUM CHLORIDE 20MEQ TABLET SR PO SCH (10:33)
[2018-11-24] MEDS: ALLOPURINOL 100 MG TABLET PO SCH (10:33)
[2018-11-24] MEDS: COLCHICINE 0.6MG TABLET PO SCH (10:34)
[2018-11-24] MEDS: ASPIRIN 81MG EC TABLET PO SCH (10:34)
[2018-11-24] MEDS: ENOXAPARIN 40MG/0.4ML SYR SUBCUT SCH (11:23)
[2018-11-24 12:00] VITALS: BP 104/71
[2018-11-24] MEDS ORDERED: SORBITOL 70% SOLN 30ML PO NR (12:00)
[2018-11-24] MEDS: NITROGLYCERIN OINT 1GM/INCH UDPKT TD SCH ×3 (14:00→14:55)
[2018-11-24] MEDS ORDERED: DOCUSATE SODIUM 100MG CAPSULE PO NR (14:15)
[2018-11-24 15:26] VITALS: BP 101/65
[2018-11-24] MEDS ORDERED: DOCUSATE SODIUM 100MG CAPSULE PO SCH (17:00)
[2018-11-24 19:26] LABS: PLATELET ESTIMATE NORMAL
[2018-11-24] MEDS ORDERED: CARVEDILOL 6.25 MG TABLET PO SCH (21:00)
== END 2018-11-24 16:30 | disposition home or self-care (01) | DRG 190 ==
LOC: ER 16:05 → 6WST 17:23 → EDBEDREQ 17:27 → EDBEDREQTM 17:27 → ENRESERV 19:36
PROVIDERS: ADMIT Internal Medicine; ATTEND Internal Medicine
DX: J44.1 Chronic obstructive pulmonary disease with (acute) exacerbation (principal); I50.23 Acute on chronic systolic (congestive) heart failure; I42.0 Dilated cardiomyopathy; Z68.41 Body mass index [BMI] 40.0-44.9, adult; I11.0 Hypertensive heart disease with heart failure; E78.5 Hyperlipidemia, unspecified; E66.09 Other obesity due to excess calories; J43.9 Emphysema, unspecified; G47.33 Obstructive sleep apnea (adult) (pediatric); I44.0 Atrioventricular block, first degree; I44.7 Left bundle-branch block, unspecified; M10.9 Gout, unspecified; E11.9 Type 2 diabetes mellitus without complications; K59.00 Constipation, unspecified; Z96.659 Presence of unspecified artificial knee joint; Z91.013 Allergy to seafood; Z71.3 Dietary counseling and surveillance
CPT/HCPCS: 36415; 71045; 80048; 83036; 83880; 84484; 84550; 85027; 93005; 93306; 94640; 99285; J1650; J1885; J1940; J2270; J2405; J2920; J2930; J7611

== ENCOUNTER 2018-12-02 02:03 | Inpatient (IN) | payer MEDICARE, MEDICAID ==
[2018-12-02] VITALS (13 sets, daily range): BP systolic 102–152; BP diastolic 63–90
[~2018-12-02] VITALS: Ht 185.4 cm; Wt 147.0 kg
[~2018-12-02 02:03] MED LIST changes: +ALBU18HF2 IH; +BECL10.62 IH; -CLIN300C11 MT; -DOCU250C19 MT; -HYDR-4009 PO; +ONDA8TAB6 PO
[2018-12-02] MEDS ORDERED: MORPHINE SULFATE 4 MG/ML CPJ (NOT FOR IM USE) IV STA (02:31)
[2018-12-02] MEDS ORDERED: SODIUM CHLORIDE 0.9% 1,000 ML IV ONE (02:31)
[2018-12-02] MEDS ORDERED: ONDANSETRON HCL 4MG/2ML INJ IV STA (02:31)
[2018-12-02 02:55] LABS: BASOPHILS % 0.7 % (0.0-2.0); HEMATOCRIT. 43.5 % (42.0-52.0); HEMOGLOBIN. 14.4 g/dL (14.0-18.0); LYMPHOCYTES % 15.6 % (20.0-50.0); MEAN CORPUSCULAR HEMOGLOBIN 29.8 pg (28.0-32.0); MEAN CORPUSCULAR VOLUME 90.1 fL (80.0-94.0); MEAN PLATELET VOLUME 7.2 fl (7.4-10.4); MONOCYTES % 7.9 % (2.0-8.0); NEUTROPHILS % 74.8 % (40.0-76.0); PLATELET 248 x1000/uL (130-400); RED BLOOD CELL COUNT 4.83 mill/uL (4.7-6.1); RED CELL DISTRIBUTION WIDTH 14.4 % (11.6-14.6)
[2018-12-02 03:02] LABS: CHLORIDE 106 mEq/L (98-107)
[2018-12-02 03:11] LABS: ETHANOL BLOOD < 10 mg/dL
[2018-12-02] MEDS ORDERED: VANCOMYCIN 1 G PREMIX 200 ML IV SCH (04:15)
[2018-12-02] MEDS ORDERED: PIPERACILLIN/TAZOBACTAM 3.375GM/50ML PREMIX IV SCH (04:15)
[2018-12-02 04:46] LABS: CLARITY URINE CLEAR (CLEAR); COLOR URINE YELLOW (YELLOW); KETONES URINE NEGATIVE (NEGATIVE); LEUKOCYTE ESTERASE URINE NEGATIVE (NEGATIVE); NITRITE URINE NEGATIVE (NEGATIVE); OCCULT BLOOD URINE NEGATIVE (NEGATIVE); PH URINE 6.5 (4.5-8.0); PROTEIN URINE TRACE (NEGATIVE); SPECIFIC GRAVITY URINE 1.009 (1.005-1.030); UROBILINOGEN URINE 0.2 E.U./dL (0.2-1.0)
[2018-12-02] MEDS ORDERED: KETOROLAC 30MG/ML VIAL IV SCH (05:00)
[2018-12-02 05:14] LABS: *BARBITURATES SCREEN URINE NEGATIVE (NEGATIVE); *BENZODIAZEPINES SCREEN URINE NEGATIVE (NEGATIVE); CANNABINOID URINE SCREEN NEGATIVE (NEGATIVE); METHADONE URINE SCREEN NEGATIVE (NEGATIVE); OPIATES URINE SCREEN PRESUMTIVE POSITIVE (NEGATIVE); PHENCYCLIDINE URINE SCREEN NEGATIVE (NEGATIVE)
[2018-12-02 05:22] LABS: *AMPHETAMINES SCREEN URINE NEGATIVE (NEGATIVE); *COCAINE SCREEN URINE NEGATIVE (NEGATIVE)
[2018-12-02] MEDS ORDERED: AZITHROMYCIN 500 MG in DEXT 5% WATER 250 ML IV SCH (06:00)
[2018-12-02] MEDS ORDERED: MORPHINE SULFATE 4 MG/ML CPJ (NOT FOR IM USE) IV ONE (07:45)
[2018-12-02] MEDS ORDERED: ASPIRIN 81MG TABLET PO ONE (07:45)
[2018-12-02] MEDS ORDERED: FUROSEMIDE 40MG/4ML VIAL IV ONE (07:45)
[2018-12-02] MEDS ORDERED: NITROGLYCERIN OINT 1GM/INCH UDPKT TD ONE (07:45)
[2018-12-02] MEDS ORDERED: ONDANSETRON HCL 4MG/2ML INJ IV PRN (08:00)
[2018-12-02] MEDS ORDERED: IPRATROPIUM/ALBUTEROL 0.5-3(2.5)MG/3ML NEB HHN PRN (08:00)
[2018-12-02] MEDS ORDERED: HYDROCODONE/ACETAMINOPHEN 5/325MG TABLET PO PRN (08:00)
[2018-12-02] MEDS ORDERED: ACETAMINOPHEN 325MG TABLET PO PRN (08:00)
[2018-12-02] MEDS ORDERED: DOCUSATE SODIUM 100MG CAPSULE PO PRN (08:00)
[2018-12-02] MEDS ORDERED: CLONIDINE 0.1MG TABLET PO PRN (08:00)
[2018-12-02] MEDS: LORAZEPAM 0.5MG TABLET PO PRN (11:45)
[2018-12-02] MEDS: MORPHINE SULFATE 2 MG/ML CPJ (NOT FOR IM USE) IV PRN ×2 (11:48→17:52)
[2018-12-02] MEDS ORDERED: FURO80TA87 MT (12:14)
[2018-12-02] MEDS: FUROSEMIDE 40MG/4ML VIAL IVP SCH ×2 (15:40→17:51)
[2018-12-02] MEDS: POTASSIUM CHLORIDE 20MEQ TABLET SR PO SCH (15:40)
[2018-12-02] MEDS: CARVEDILOL 12.5MG TABLET PO SCH ×2 (15:41→21:00)
[2018-12-02] MEDS: SACUBITRIL/VALSARTAN 49MG/51MG TABLET PO SCH (17:51)
[2018-12-02] MEDS: ENOXAPARIN 40MG/0.4ML SYR SUBCUT SCH (17:54)
[2018-12-02] MEDS: ALLOPURINOL 100 MG TABLET PO SCH (19:30)
[2018-12-02] MEDS: ATORVASTATIN CALCIUM 10MG TABLET PO SCH (21:00)
[2018-12-02] MEDS ORDERED: IOHEXOL-350 100 ML BOTTLE ONE (21:59)
[2018-12-02] MEDS: SORBITOL 70% SOLN 30ML PO PRN (22:12)
[2018-12-03] VITALS (12 sets, daily range): BP systolic 92–125; BP diastolic 46–83
[2018-12-03] MEDS: MORPHINE SULFATE 2 MG/ML CPJ (NOT FOR IM USE) IV PRN ×2 (04:10→19:48)
[2018-12-03] MEDS: ENOXAPARIN 40MG/0.4ML SYR SUBCUT SCH ×2 (06:00→17:02)
[2018-12-03] MEDS: LORAZEPAM 0.5MG TABLET PO PRN (06:30)
[2018-12-03 06:40] LABS: BASOPHILS % 0.6 % (0.0-2.0); EOSINOPHILS % 0.8 % (0.0-5.0); HEMATOCRIT. 44.2 % (42.0-52.0); HEMOGLOBIN. 14.7 g/dL (14.0-18.0); LYMPHOCYTES % 20.4 % (20.0-50.0); MEAN CORPUSCULAR HEMOGLOBIN 30.2 pg (28.0-32.0); MEAN CORPUSCULAR VOLUME 90.4 fL (80.0-94.0); MEAN PLATELET VOLUME 7.5 fl (7.4-10.4); MONOCYTES % 9.6 % (2.0-8.0); NEUTROPHILS % 68.6 % (40.0-76.0); PLATELET 228 x1000/uL (130-400); RED BLOOD CELL COUNT 4.89 mill/uL (4.7-6.1); RED CELL DISTRIBUTION WIDTH 14.6 % (11.6-14.6)
[2018-12-03 06:45] LABS: CHLORIDE 106 mEq/L (98-107)
[2018-12-03 06:51] LABS: PHOSPHORUS 4.3 mg/dL (2.5-4.9)
[2018-12-03] MEDS: SACUBITRIL/VALSARTAN 49MG/51MG TABLET PO SCH ×2 (08:27→16:09)
[2018-12-03] MEDS: CARVEDILOL 12.5MG TABLET PO SCH ×2 (08:27→20:41)
[2018-12-03] MEDS: FUROSEMIDE 40MG/4ML VIAL IVP SCH ×2 (08:27→16:09)
[2018-12-03] MEDS: POTASSIUM CHLORIDE 20MEQ TABLET SR PO SCH (08:27)
[2018-12-03] MEDS: ASPIRIN 81MG EC TABLET PO SCH (08:27)
[2018-12-03] MEDS: ALLOPURINOL 100 MG TABLET PO SCH (08:27)
[2018-12-03] MEDS: ATORVASTATIN CALCIUM 10MG TABLET PO SCH (20:40)
[2018-12-03] MEDS: SORBITOL 70% SOLN 30ML PO PRN (22:23)
[2018-12-04] VITALS (12 sets, daily range): BP systolic 83–120; BP diastolic 43–79
[2018-12-04] MEDS: MORPHINE SULFATE 2 MG/ML CPJ (NOT FOR IM USE) IV PRN ×2 (02:45→19:54)
[2018-12-04 05:37] LABS: BASOPHILS % 0.5 % (0.0-2.0); EOSINOPHILS % 0.6 % (0.0-5.0); HEMATOCRIT. 39.9 % (42.0-52.0); HEMOGLOBIN. 13.5 g/dL (14.0-18.0); LYMPHOCYTES % 16.1 % (20.0-50.0); MEAN CORPUSCULAR HEMOGLOBIN 30.4 pg (28.0-32.0); MEAN CORPUSCULAR VOLUME 90.4 fL (80.0-94.0); MEAN PLATELET VOLUME 7.6 fl (7.4-10.4); MONOCYTES % 6.8 % (2.0-8.0); PLATELET 218 x1000/uL (130-400); RED BLOOD CELL COUNT 4.42 mill/uL (4.7-6.1); RED CELL DISTRIBUTION WIDTH 14.3 % (11.6-14.6)
[2018-12-04] MEDS: ENOXAPARIN 40MG/0.4ML SYR SUBCUT SCH ×2 (05:52→17:22)
[2018-12-04 06:02] LABS: CHLORIDE 106 mEq/L (98-107)
[2018-12-04] MEDS: SACUBITRIL/VALSARTAN 49MG/51MG TABLET PO SCH (08:21)
[2018-12-04] MEDS: POTASSIUM CHLORIDE 20MEQ TABLET SR PO SCH (08:21)
[2018-12-04] MEDS: ASPIRIN 81MG EC TABLET PO SCH (08:21)
[2018-12-04] MEDS: FUROSEMIDE 40MG/4ML VIAL IVP SCH (08:21)
[2018-12-04] MEDS: ALLOPURINOL 100 MG TABLET PO SCH (08:22)
[2018-12-04] MEDS: CARVEDILOL 12.5MG TABLET PO SCH (08:30)
[2018-12-04] MEDS: ATORVASTATIN CALCIUM 10MG TABLET PO SCH (21:00)
[2018-12-05] VITALS: BP 112/70
[2018-12-05 02:00] VITALS: BP 180/83
[2018-12-05 04:00] VITALS: BP 150/83
[2018-12-05] MEDS: ENOXAPARIN 40MG/0.4ML SYR SUBCUT SCH (05:49)
[2018-12-05 06:00] VITALS: BP 109/65
[2018-12-05 06:42] LABS: BASOPHILS % 0.6 % (0.0-2.0); HEMATOCRIT. 41.2 % (42.0-52.0); HEMOGLOBIN. 13.7 g/dL (14.0-18.0); MEAN CORPUSCULAR HEMOGLOBIN 30.3 pg (28.0-32.0); MEAN CORPUSCULAR VOLUME 90.9 fL (80.0-94.0); MEAN PLATELET VOLUME 7.7 fl (7.4-10.4); MONOCYTES % 7.3 % (2.0-8.0); NEUTROPHILS % 76.1 % (40.0-76.0); PLATELET 218 x1000/uL (130-400); RED BLOOD CELL COUNT 4.54 mill/uL (4.7-6.1); RED CELL DISTRIBUTION WIDTH 14.3 % (11.6-14.6)
[2018-12-05 06:53] LABS: CHLORIDE 106 mEq/L (98-107)
[2018-12-05 08:00] VITALS: BP 95/77
[2018-12-05] MEDS: POTASSIUM CHLORIDE 20MEQ TABLET SR PO SCH (08:16)
[2018-12-05] MEDS: ASPIRIN 81MG EC TABLET PO SCH (08:16)
[2018-12-05] MEDS ORDERED: FUROSEMIDE 40MG TABLET PO SCH (09:00)
== END 2018-12-05 14:37 | disposition home or self-care (01) | DRG 291 ==
LOC: ER 02:22 → 3WST 05:08 → EDBEDREQ 05:13 → EDBEDREQTM 05:13 → EDBEDREQSVC 08:41 → ENRESERV 09:20
PROVIDERS: ADMIT Internal Medicine; ATTEND Internal Medicine
DX: I11.0 Hypertensive heart disease with heart failure (principal); J18.9 Pneumonia, unspecified organism; J44.0 Chronic obstructive pulmonary disease with (acute) lower respiratory infection; I50.23 Acute on chronic systolic (congestive) heart failure; I42.0 Dilated cardiomyopathy; I44.7 Left bundle-branch block, unspecified; E78.5 Hyperlipidemia, unspecified; I27.20 Pulmonary hypertension, unspecified; I44.0 Atrioventricular block, first degree; Y95 Nosocomial condition; I07.1 Rheumatic tricuspid insufficiency; M10.9 Gout, unspecified; Z96.659 Presence of unspecified artificial knee joint; Z79.82 Long term (current) use of aspirin; Z79.899 Other long term (current) drug therapy; Z91.013 Allergy to seafood; Z82.49 Family history of ischemic heart disease and other diseases of the circulatory system
CPT/HCPCS: 36415; 71045; 71275; 74176; 80048; 80076; 80305; 80320; 81003; 83605; 83735; 83880; 84100; 84484; 85379; 93005; 96365; 99291; J0456; J1650; J1885; J1940; J2270; J2405; J2543; J3370; J7030; J7060; Q9967; G0480

== ENCOUNTER 2019-01-22 00:08 | Inpatient (IN) | payer MEDICARE, MEDICAID ==
[~2019-01-22] VITALS: Ht 185.4 cm; Wt 145.8 kg
[2019-01-22] MEDS ORDERED: ONDANSETRON HCL 4MG/2ML INJ IV STA (01:36)
[2019-01-22] MEDS ORDERED: MORPHINE SULFATE 4 MG/ML CPJ (NOT FOR IM USE) IV STA (01:36)
[2019-01-22 01:49] LABS: BASOPHILS % 0.7 % (0.0-2.0); CHLORIDE 106 mEq/L (98-107); EOSINOPHILS % 1.1 % (0.0-5.0); HEMATOCRIT. 42.9 % (42.0-52.0); HEMOGLOBIN. 14.4 g/dL (14.0-18.0); LYMPHOCYTES % 19.3 % (20.0-50.0); MEAN CORPUSCULAR HEMOGLOBIN 30.3 pg (28.0-32.0); MEAN CORPUSCULAR VOLUME 90.3 fL (80.0-94.0); MEAN PLATELET VOLUME 7.1 fl (7.4-10.4); MONOCYTES % 7.4 % (2.0-8.0); NEUTROPHILS % 71.5 % (40.0-76.0); PLATELET 245 x1000/uL (130-400); RED BLOOD CELL COUNT 4.74 mill/uL (4.7-6.1)
[2019-01-22 05:30] VITALS: BP 127/95
[2019-01-22 06:31] LABS: *AMPHETAMINES SCREEN URINE NEGATIVE (NEGATIVE); *BARBITURATES SCREEN URINE NEGATIVE (NEGATIVE)
[2019-01-22 06:32] LABS: *BENZODIAZEPINES SCREEN URINE NEGATIVE (NEGATIVE); *COCAINE SCREEN URINE NEGATIVE (NEGATIVE); CANNABINOID URINE SCREEN NEGATIVE (NEGATIVE); METHADONE URINE SCREEN NEGATIVE (NEGATIVE); OPIATES URINE SCREEN PRESUMTIVE POSITIVE (NEGATIVE); PHENCYCLIDINE URINE SCREEN NEGATIVE (NEGATIVE)
[2019-01-22 08:00] VITALS: BP 110/75
[2019-01-22] MEDS ORDERED: DIPHENHYDRAMINE 50MG/ML VIAL IV PRN (09:00)
[2019-01-22] MEDS ORDERED: ACETAMINOPHEN 325MG TABLET PO PRN (09:00)
[2019-01-22] MEDS ORDERED: CLONIDINE 0.1MG TABLET PO PRN (09:00)
[2019-01-22] MEDS ORDERED: IPRATROPIUM/ALBUTEROL 0.5-3(2.5)MG/3ML NEB HHN PRN (09:00)
[2019-01-22] MEDS: ENOXAPARIN 40MG/0.4ML SYR SUBCUT SCH ×2 (09:00→21:13)
[2019-01-22] MEDS ORDERED: ONDANSETRON HCL 4MG/2ML INJ IV PRN (09:00)
[2019-01-22] MEDS ORDERED: MAGNESIUM/ALUMINUM HYDROXIDE/SIMETHICONE 30ML UDC PO PRN (09:00)
[2019-01-22] MEDS: FUROSEMIDE 40MG/4ML VIAL IV SCH ×2 (09:18→17:42)
[2019-01-22 10:33] LABS: PHOSPHORUS 4.4 mg/dL (2.5-4.9)
[2019-01-22] MEDS: MORPHINE SULFATE 2 MG/ML CPJ (NOT FOR IM USE) IV PRN ×2 (11:14→17:53)
[2019-01-22 12:00] VITALS: BP 112/81
[2019-01-22] MEDS: IBUPROFEN 600MG TABLET PO SCH ×2 (13:00→17:34)
[2019-01-22] MEDS: POTASSIUM CHLORIDE 20MEQ TABLET SR PO SCH (13:21)
[2019-01-22] MEDS: ASPIRIN 81MG EC TABLET PO SCH (13:21)
[2019-01-22] MEDS: COLCHICINE 0.6MG TABLET PO SCH (13:21)
[2019-01-22] MEDS: CARVEDILOL 12.5MG TABLET PO SCH ×3 (13:24→23:31)
[2019-01-22] MEDS: ALLOPURINOL 100 MG TABLET PO SCH (13:28)
[2019-01-22] MEDS: SACUBITRIL/VALSARTAN 49MG/51MG TABLET PO SCH ×2 (14:33→22:31)
[2019-01-22 16:00] VITALS: BP 114/84
[2019-01-22 20:00] VITALS: BP 100/69
[2019-01-22] MEDS: ATORVASTATIN CALCIUM 10MG TABLET PO SCH (21:13)
[2019-01-22 22:50] VITALS: BP_SYST 106; BP_SYST 108; BP_DIAS 67; BP_DIAS 75
[2019-01-23] VITALS (41 sets, daily range): BP systolic 77–150; BP diastolic 52–96
[2019-01-23 07:53] LABS: CHLORIDE 105 mEq/L (98-107)
[2019-01-23 08:00] LABS: BASOPHILS % 0.6 % (0.0-2.0); EOSINOPHILS % 1.5 % (0.0-5.0); HEMATOCRIT. 43.2 % (42.0-52.0); HEMOGLOBIN. 14.4 g/dL (14.0-18.0); LDL CHOLESTEROL 78 mg/dL (5-100); LYMPHOCYTES % 15.7 % (20.0-50.0); MEAN CORPUSCULAR HEMOGLOBIN 30.3 pg (28.0-32.0); MEAN CORPUSCULAR VOLUME 90.7 fL (80.0-94.0); MEAN PLATELET VOLUME 7.1 fl (7.4-10.4); MONOCYTES % 10.4 % (2.0-8.0); NEUTROPHILS % 71.8 % (40.0-76.0); PLATELET 267 x1000/uL (130-400); RED BLOOD CELL COUNT 4.76 mill/uL (4.7-6.1); RED CELL DISTRIBUTION WIDTH 15.2 % (11.6-14.6)
[2019-01-23 08:01] LABS: HDL CHOLESTEROL 50 mg/dL (40-59)
[2019-01-23] MEDS: CARVEDILOL 12.5MG TABLET PO SCH ×2 (09:00→20:31)
[2019-01-23] MEDS: SACUBITRIL/VALSARTAN 49MG/51MG TABLET PO SCH ×2 (09:00→20:10)
[2019-01-23] MEDS: ASPIRIN 81MG EC TABLET PO SCH (09:10)
[2019-01-23] MEDS: MORPHINE SULFATE 2 MG/ML CPJ (NOT FOR IM USE) IV PRN ×2 (09:10→19:49)
[2019-01-23] MEDS: FUROSEMIDE 40MG/4ML VIAL IV SCH ×2 (09:11→16:49)
[2019-01-23] MEDS: IBUPROFEN 600MG TABLET PO SCH ×3 (09:11→18:20)
[2019-01-23] MEDS: ALLOPURINOL 100 MG TABLET PO SCH (09:12)
[2019-01-23] MEDS: ENOXAPARIN 40MG/0.4ML SYR SUBCUT SCH ×2 (09:12→20:10)
[2019-01-23] MEDS: COLCHICINE 0.6MG TABLET PO SCH (10:46)
[2019-01-23] MEDS: POTASSIUM CHLORIDE 20MEQ TABLET SR PO SCH (10:46)
[2019-01-23] MEDS: ATORVASTATIN CALCIUM 10MG TABLET PO SCH (20:10)
[2019-01-24] VITALS (12 sets, daily range): BP systolic 87–103; BP diastolic 49–72
[2019-01-24 06:49] LABS: BASOPHILS % 0.8 % (0.0-2.0); EOSINOPHILS % 1.7 % (0.0-5.0); HEMATOCRIT. 43.3 % (42.0-52.0); HEMOGLOBIN. 14.7 g/dL (14.0-18.0); LYMPHOCYTES % 17.1 % (20.0-50.0); MEAN CORPUSCULAR HEMOGLOBIN 30.6 pg (28.0-32.0); MEAN PLATELET VOLUME 7.3 fl (7.4-10.4); MONOCYTES % 9.6 % (2.0-8.0); NEUTROPHILS % 70.8 % (40.0-76.0); PLATELET 272 x1000/uL (130-400)
[2019-01-24 07:59] LABS: CHLORIDE 107 mEq/L (98-107)
[2019-01-24] MEDS: POTASSIUM CHLORIDE 20MEQ TABLET SR PO SCH (08:38)
[2019-01-24] MEDS: ASPIRIN 81MG EC TABLET PO SCH (08:38)
[2019-01-24] MEDS: COLCHICINE 0.6MG TABLET PO SCH (08:38)
[2019-01-24] MEDS: FUROSEMIDE 40MG/4ML VIAL IV SCH ×2 (08:38→17:08)
[2019-01-24] MEDS: ALLOPURINOL 100 MG TABLET PO SCH (08:39)
[2019-01-24] MEDS: CARVEDILOL 12.5MG TABLET PO SCH ×3 (08:39→21:18)
[2019-01-24] MEDS: ENOXAPARIN 40MG/0.4ML SYR SUBCUT SCH ×2 (10:10→21:14)
[2019-01-24] MEDS: MORPHINE SULFATE 2 MG/ML CPJ (NOT FOR IM USE) IV PRN ×2 (10:53→21:27)
[2019-01-24] MEDS: SACUBITRIL/VALSARTAN 49MG/51MG TABLET PO SCH ×2 (12:02→21:14)
[2019-01-24] MEDS: IBUPROFEN 600MG TABLET PO SCH ×3 (12:03→17:11)
[2019-01-24] MEDS: ATORVASTATIN CALCIUM 10MG TABLET PO SCH (21:14)
[2019-01-25] VITALS (7 sets, daily range): BP systolic 89–101; BP diastolic 61–68
[2019-01-25 07:03] LABS: BASOPHILS % 0.9 % (0.0-2.0); EOSINOPHILS % 1.9 % (0.0-5.0); HEMOGLOBIN. 13.9 g/dL (14.0-18.0); LYMPHOCYTES % 19.4 % (20.0-50.0); MEAN CORPUSCULAR HEMOGLOBIN 30.1 pg (28.0-32.0); MEAN CORPUSCULAR VOLUME 90.9 fL (80.0-94.0); MONOCYTES % 10.9 % (2.0-8.0); NEUTROPHILS % 66.9 % (40.0-76.0); PLATELET 253 x1000/uL (130-400); RED BLOOD CELL COUNT 4.62 mill/uL (4.7-6.1); RED CELL DISTRIBUTION WIDTH 14.9 % (11.6-14.6)
[2019-01-25 07:27] LABS: CHLORIDE 106 mEq/L (98-107)
[2019-01-25] MEDS: SACUBITRIL/VALSARTAN 49MG/51MG TABLET PO SCH (08:09)
[2019-01-25] MEDS: FUROSEMIDE 40MG/4ML VIAL IV SCH (08:09)
[2019-01-25] MEDS: IBUPROFEN 600MG TABLET PO SCH (08:16)
[2019-01-25] MEDS: ASPIRIN 81MG EC TABLET PO SCH (08:17)
[2019-01-25] MEDS: POTASSIUM CHLORIDE 20MEQ TABLET SR PO SCH (08:17)
[2019-01-25] MEDS: ALLOPURINOL 100 MG TABLET PO SCH (08:18)
[2019-01-25] MEDS: COLCHICINE 0.6MG TABLET PO SCH (08:18)
[2019-01-25] MEDS: CARVEDILOL 12.5MG TABLET PO SCH (08:18)
[2019-01-25] MEDS: ENOXAPARIN 40MG/0.4ML SYR SUBCUT SCH (08:18)
== END 2019-01-25 11:30 | disposition home or self-care (01) | DRG 292 ==
LOC: ER 00:08 → 8WST 03:58 → EDBEDREQTM 04:01 → EDBEDREQ 04:01 → ENRESERV 04:21 → CVICU 01-23 06:26 → 3WST 01-23 22:33
PROVIDERS: ADMIT Internal Medicine; ATTEND Internal Medicine
DX: I11.0 Hypertensive heart disease with heart failure (principal); Z68.41 Body mass index [BMI] 40.0-44.9, adult; I50.23 Acute on chronic systolic (congestive) heart failure; I42.0 Dilated cardiomyopathy; J44.9 Chronic obstructive pulmonary disease, unspecified; F17.200 Nicotine dependence, unspecified, uncomplicated; E11.9 Type 2 diabetes mellitus without complications; E66.9 Obesity, unspecified; E78.5 Hyperlipidemia, unspecified; G47.33 Obstructive sleep apnea (adult) (pediatric); I34.0 Nonrheumatic mitral (valve) insufficiency; I44.0 Atrioventricular block, first degree; I44.7 Left bundle-branch block, unspecified; I95.9 Hypotension, unspecified; K57.90 Diverticulosis of intestine, part unspecified, without perforation or abscess without bleeding; Z82.49 Family history of ischemic heart disease and other diseases of the circulatory system; Z87.01 Personal history of pneumonia (recurrent); Z91.013 Allergy to seafood; K46.9 Unspecified abdominal hernia without obstruction or gangrene; Z79.4 Long term (current) use of insulin
CPT/HCPCS: 36415; 71045; 74176; 80048; 80061; 80305; 83605; 83735; 83880; 84100; 84443; 84484; 93005; 93306; 93970; 96374; 99285; A6261; J1650; J1940; J2270; J2405

== ENCOUNTER 2019-05-19 03:10 | Emergency (ER) | payer MEDICARE, MEDICAID ==
[~2019-05-19] VITALS: Ht 190.5 cm; Wt 145.0 kg
[~2019-05-19 03:10] MED LIST changes: -ASPI-1393 MT; +DILT60TA35 PO; +FURO40TA5 PO; +HYDR-4009 PO; +HYDR-4094 MT; +P20 MT; +PANT40TA4 MT; +PANT40TA4 PO; +POTA20TA82 MT; +SUCR1ORA15 PO
[2019-05-19] MEDS ORDERED: DICYCLOMINE 10 MG/5 ML ORAL SYR PO STA (03:50)
[2019-05-19] MEDS ORDERED: SODIUM CHLORIDE 0.9% 1,000 ML IV ONE ×2 (03:50→05:00)
[2019-05-19] MEDS ORDERED: MORPHINE SULFATE 4 MG/ML CPJ (NOT FOR IM USE) IV STA (03:50)
[2019-05-19] MEDS ORDERED: ONDANSETRON HCL 4MG/2ML INJ IV STA (03:50)
[2019-05-19 04:32] LABS: BASOPHILS % 0.9 % (0.0-2.0); EOSINOPHILS % 1.3 % (0.0-5.0); HEMATOCRIT. 41.8 % (42.0-52.0); HEMOGLOBIN. 13.9 g/dL (14.0-18.0); LYMPHOCYTES % 13.2 % (20.0-50.0); MEAN CORPUSCULAR HEMOGLOBIN 29.9 pg (28.0-32.0); MEAN CORPUSCULAR VOLUME 89.8 fL (80.0-94.0); MEAN PLATELET VOLUME 7.5 fl (7.4-10.4); MONOCYTES % 6.9 % (2.0-8.0); NEUTROPHILS % 77.7 % (40.0-76.0); PLATELET 255 x1000/uL (130-400); RED BLOOD CELL COUNT 4.65 mill/uL (4.7-6.1); RED CELL DISTRIBUTION WIDTH 16.5 % (11.6-14.6)
[2019-05-19 04:37] LABS: CHLORIDE 103 mEq/L (98-107); INR 1.1; PROTHROMBIN TIME 11.5 sec (9.6-11.0)
[2019-05-19 04:44] LABS: ETHANOL BLOOD < 10 mg/dL
[2019-05-19] MEDS ORDERED: IOHEXOL-300 100 ML BOTTLE ONE (06:35)
[2019-05-19 06:43] LABS: CLARITY URINE CLEAR (CLEAR); COLOR URINE YELLOW (YELLOW); KETONES URINE NEGATIVE (NEGATIVE); LEUKOCYTE ESTERASE URINE NEGATIVE (NEGATIVE); NITRITE URINE NEGATIVE (NEGATIVE); OCCULT BLOOD URINE NEGATIVE (NEGATIVE); PROTEIN URINE TRACE (NEGATIVE); SPECIFIC GRAVITY URINE 1.017 (1.005-1.030); UROBILINOGEN URINE 0.2 E.U./dL (0.2-1.0)
[2019-05-19 07:20] LABS: *AMPHETAMINES SCREEN URINE NEGATIVE (NEGATIVE); *BARBITURATES SCREEN URINE NEGATIVE (NEGATIVE); *BENZODIAZEPINES SCREEN URINE NEGATIVE (NEGATIVE); *COCAINE SCREEN URINE NEGATIVE (NEGATIVE)
[2019-05-19 07:29] LABS: CANNABINOID URINE SCREEN NEGATIVE (NEGATIVE); METHADONE URINE SCREEN NEGATIVE (NEGATIVE); OPIATES URINE SCREEN PRESUMTIVE POSITIVE (NEGATIVE); PHENCYCLIDINE URINE SCREEN NEGATIVE (NEGATIVE)
[2019-05-19] MEDS ORDERED: ONDANSETRON HCL 4MG/2ML INJ ONE (11:25)
[2019-05-19 12:42] VITALS: BP 118/75
== END 2019-05-19 13:08 | disposition home or self-care (01) ==
LOC: ER 03:10
DX: K85.90 Acute pancreatitis without necrosis or infection, unspecified (principal); Z76.5 Malingerer [conscious simulation]; R07.89 Other chest pain; I11.0 Hypertensive heart disease with heart failure; I50.9 Heart failure, unspecified; E78.00 Pure hypercholesterolemia, unspecified; Z79.899 Other long term (current) drug therapy
CPT/HCPCS: 36415; 71045; 74177; 76700; 80053; 80305; 80320; 81003; 83605; 83690; 84484; 85025; 85610; 87040; 93005; 96374; 99285; J2270; J2405; J7030; Q9967; G0480